=== PATIENT | female | born 1990 | race Caucasian/White ===

== ENCOUNTER 2016-06-19 17:23 | Emergency (ER) | payer MEDICAID ==
--- NOTE | 2016-06-19 17:26 | ED Physician Chart ---
Chief Complaint/HPI - Patient Information Date Seen:: 06/19/16 Time Seen:: 17:26 Chief Complaint:: abdominal pain History of Present Illness:: 26-year-old female complains of acute, constant, moderate to severe, aching and cramping, 8-9 out of 10, upper abdominal pain since yesterday morning. Has associated nausea and vomiting. Has a known history of gallstones. Allergies:: Allergies Allergy/AdvReac Type Severity Reaction Status Date / Time MDX No Known Allergies - Nka Allergy Verified 09/12/12 23:29 [No Known Allergies - Nka] Historian:: Patient Review:: Nurse's Note Reviewed Review of Systems - Review of Systems Other: Complete system review otherwise unremarkable except as noted in HPI. Past Medical History - Past Medical History Past Medical History: Other (cholelithiasis) Family History: None Social History: Non Smoker, No Alcohol, No Drug Use, Employed Surgical History: None Psychiatricy History: None Medication: None Family Medical History - Family Member Mother History Unknown: Yes Ethnicity: Living Status: Still Living Physical Exam - Physical Examination Other:: INITIAL VITAL SIGNS: Reviewed by me GENERAL: Alert and interactive. Very mild distress due to pain HEAD: Head is normocephalic and atraumatic EYES: EOMI. . No scleral icterus. No conjunctival injection ENT: Moist mucous membranes. NECK: Supple. No masses. Full range of motion RESPIRATORY: No tachypnea. Clear breath sounds bilaterally. No wheezing, rales, or rhonchi CV: Regular rate and rhythm. No murmurs, rubs, or gallops ABDOMEN: Soft, non-distended, guarding to deep palpation in the right upper quadrant. No rebound. No masses. EXTREMITIES: No deformity. No cyanosis. No edema. SKIN: Warm and dry. No obvious rashes. NEUROLOGIC: Alert and oriented. Face is symmetric. Speech is normal. Moves all extremities equally. Motor and sensory distally intact. Labs/Radiology/EKG Results - Lab Results Results: Lab Results 06/19/16 06/19/16 06/19/16 Range/Units 17:46 17:46 17:46 WBC 9.2 (4.8-10.8) Th/cmm RBC 4.83 (3.80-5.10) Mil/cmm Hgb 14.3 (11.7-15.5) gm/dL Hct 41.9 D (35.0-45.0) % MCV 86.7 (81-100) fl MCH 29.6 (27.0-31.0) pg MCHC Differential 34.2 (28.0-36.0) pg RDW 11.9 (11.5-20.0) % Plt Count 249 (150-400) Th/cmm MPV 9.0 fl Neutrophils % 76.8 (40.0-80.0) % Lymphocytes % 15.3 L (20.0-50.0) % Monocytes % 5.1 (2.0-10.0) % Eosinophils % 2.4 (0.0-5.0) % Basophils % 0.4 (0.0-2.0) % Sodium 136 (136-145) mEq/L Potassium 3.6 (3.5-5.1) mEq/L Chloride 105 (98-107) mEq/L Carbon Dioxide 23.8 (21.0-31.0) mEq/L Anion Gap 10.8 (7.0-16.0) BUN 8 (7-25) mg/dL Creatinine 0.4 L (0.6-1.2) mg/dL Est GFR ( Amer) > 60.0 ml/min Est GFR (Non-Af Amer) > 60.0 ml/min BUN/Creatinine Ratio 20.0 Glucose 102 (70-105) mg/dL Calcium 9.1 (8.6-10.3) mg/dL Total Bilirubin 1.3 H (0.3-1.0) mg/dL AST 174 H (13-39) U/L ALT 252 H (7-52) U/L Alkaline Phosphatase 114 H (34-104) U/L Total Protein 7.7 (6.0-8.3) gm/dL Albumin 4.3 (3.7-5.3) gm/dL Globulin 3.4 gm/dL Albumin/Globulin Ratio 1.3 (1.0-1.8) Amylase 45 (29-103) U/L Lipase 17 (11-82) U/L Serum , Qual NEGATIVE (NEGATIVE) - Radiology Results Results: CT abdomen and pelvis without contrast Cholelithiasis ED Septic Shock - . Is Septic Shock (SBP<90, OR Lactate>4 mmol\L) present?: No Reassessment (Disposition) - Reassessment Reassessment:: The patient has Symptomatically cholelithiasis. There is no indication of cholecystitis at this point. Discussed all the findings with her in detail. She received IV antiemetics and IV pain medications here in the ER with complete relief of symptoms. She will need to follow-up with her primary care physician first referral to surgery. This was explained in detail to the patient. Recommended follow-up with PCP in the next 1-2 days with ultimately referral to general surgery. We gave return to ER precautions. She says she understands and agrees with the plan. Reassessment Condition:: Improved - Diagnosis Diagnosis:: Symptomatically cholelithiasis - Aftercare/Follow up Instructions Aftercare/Follow-Up Instructions:: Counseled pt regarding lab results/diagnosis & need follow up, Refer to Discharge Instructions Medication Prescribed:: Onley Ibuprofen Zofran - Patient Disposition Discharge/Transfer:: Home Time:: 18:59 Condition at Disposition:: Improved ED Discharge Plan - Patient Disposition Admit/Discharge/Transfer: PT DISCHARGED HOME Condition at Disposition: Improved Instructions: Cholelithiasis, Ddcs-rs-Void
[2016-06-19] MEDS ORDERED: Sodium Chloride 0.9% 1,000 ML IV ONE (17:37)
[2016-06-19] MEDS ORDERED: Prochlorperazine 5 mg/mL 2mL Vial IVP STA (17:41)
[2016-06-19 17:58] LABS: % BASOPHILS 0.4 % (0.0-2.0); % EOSINOPHILS 2.4 % (0.0-5.0); % LYMPHOCYTES 15.3 % (20.0-50.0); % MONOCYTES 5.1 % (2.0-10.0); % NEUTROPHILS 76.8 % (40.0-80.0); HEMOGLOBIN 14.3 gm/dL (11.7-15.5); MEAN CELL VOLUME 86.7 fl (81-100); MEAN CORPUSCULAR HEMOGLOBIN 29.6 pg (27.0-31.0); MEAN CORPUSCULAR HGB CONC 34.2 pg (28.0-36.0); NEUTROPHILE ABSOLUTE 7.1 Th/cmm (1.8-8.0); PLATELET COUNT 249 Th/cmm (150-400); RED BLOOD COUNT 4.83 Mil/cmm (3.80-5.10); RED CELL DISTRIBUTION WIDTH 11.9 % (11.5-20.0); WHITE BLOOD COUNT 9.2 Th/cmm (4.8-10.8)
[2016-06-19 17:59] LABS: HEMATOCRIT 41.9 % (35.0-45.0)
[2016-06-19] MEDS ORDERED: Prochlorperazine 5 mg/mL 2mL Vial ONE (18:01)
[2016-06-19 18:07] LABS: ALB/GLOB RATIO 1.3 (1.0-1.8); ALKALINE PHOSPHATASE 114 U/L (34-104); AMYLASE SERUM 45 U/L (29-103); ANION GAP 10.8 (7.0-16.0); BILIRUBIN,TOTAL 1.3 mg/dL (0.3-1.0); BUN - UREA NITROGEN 8 mg/dL (7-25); CALCIUM SERUM 9.1 mg/dL (8.6-10.3); CARBON DIOXIDE 23.8 mEq/L (21.0-31.0); CHLORIDE 105 mEq/L (98-107); CREATININE - SERUM 0.4 mg/dL (0.6-1.2); GLUCOSE 102 mg/dL (70-105); LIPASE 17 U/L (11-82); POTASSIUM SERUM 3.6 mEq/L (3.5-5.1); SGOT 174 U/L (13-39); SGPT/ALT 252 U/L (7-52); SODIUM SERUM 136 mEq/L (136-145)
--- NOTE | 2016-06-20 11:55 | Diagnostic Imaging Report ---
CT scan abdomen and pelvis without intravenous contrast HISTORY: Pain Total DLP equals 658 CTDI equals 12.6 Axial sections were obtained from the xiphoid process down to the pubic symphysis. The liver exhibits a homogeneous parenchyma. No focal lesions. Multiple gallstones are seen. The spleen appears normal. No focal abnormality seen in the region of the pancreas. No focal renal lesions. The exam of the pelvis demonstrates preservation of normal fat planes. No abnormal soft tissue masses or abnormal fluid collections. No abnormality seen in the region of the appendix. IMPRESSION: 1. Cholelithiasis 2. No other acute abnormalities
== END 2016-06-19 19:10 | disposition home or self-care (01) ==
LOC: ER 17:23
DX: K80.20 Calculus of gallbladder without cholecystitis without obstruction (principal)
CPT/HCPCS: 99285; 74176; 96374; 96375; 36415; 85025; 82150; 81025; 83690; 80053; J1885; J2405; J0780; J7030

== ENCOUNTER 2017-08-31 19:25 | Inpatient (IN) | payer MEDICAID ==
--- NOTE | 2017-08-31 20:57 | ED Physician Chart ---
ED Chief Complaint/HPI - Patient Information Date Seen:: 08/31/17 Time Seen:: 20:52 Chief Complaint:: Abdominal pain History of Present Illness:: 27 yo female had abdominal pain with nausea and vomiting for 4 days. She had abdominal bloating and decreased appetite. Patient denied diarrhea or dysuria. Her urine had dark tea color. Her skin and bilateral conjunctiva were noticed to be yellow for 1 day. Allergies:: Allergies Allergy/AdvReac Type Severity Reaction Status Date / Time No Known Allergies Allergy Verified 08/31/17 20:05 Vitals:: Vital Signs - 8 hr 08/31/17 19:40 Temp 98.1 F HR 80 RR 18 BP 107/67 O2 Sat % 98 ED Review of Systems - Review of Systems General/Constitutional: No fever Skin: Other (yellow skin) Head: No headache Eyes: No pain ENT: No nasal drainage Neck: No neck pain Cardio Vascular: No chest pain Pulmonary: No SOB GI: Nausea, Vomiting, No diarrhea G/U: Other (tea color urine) Musculoskeletal: No bone or joint pain Psychiatric: No prior psych history ED Past Medical History - Past Medical History Past Medical History: No significant medical hx, Other (irregular menstural peroids, LMP 9 months ago) Social History: Non Smoker, No Alcohol, No Drug Use Surgical History: None Family Medical History - Family Member Mother History Unknown: Yes Ethnicity: Living Status: Still Living ED Physical Exam - Physical Examination General/Constitutional: Awake, Alert Head: Atraumatic Other Eyes comments:: icteric conjunctiva Other Skin comments:: jaundice ENMT: Nasal exam nl Neck: No nuchal rigidity Respiratory: Clear to Auscultation Cardio Vascular: RRR, No murmur, gallop, rubs, NL S1 S2 Other GI comments:: Diffused abdominal tenderness and RUQ tenderness, hypoactive bowel sound Extremities: normal strength in all extremities Neuro/Psych: No focal deficits ED Assessment - Assessment General Assessment: Cholecystitis Choledocholithiasis Jaundice UTI Dehydration Assessment/Comments:: CBC, CMP, lipase, amylase, UA Abdominal u/s NS 1L IV bolus Pantoprazole 40mg IV Rocephin IV Flagyl IV Admit to med surg ED Septic Shock - . Is Septic Shock (SBP<90, OR Lactate>4 mmol\L) present?: No - <6hrs of presentation: Vital Signs: Vital Signs - 8 hr 08/31/17 19:40 Temp 98.1 F HR 80 RR 18 BP 107/67 O2 Sat % 98 ED Reassessment (Disposition) - Reassessment Reassessment Condition:: Improved - Patient Disposition Discharge/Transfer:: Acute Care w/in this hosp Admitting Medical Physician:: Alek Moss
[2017-08-31 21:21] LABS: % BASOPHILS 1.4 % (0.0-2.0); % EOSINOPHILS 1.5 % (0.0-5.0); % LYMPHOCYTES 16.9 % (20.0-50.0); % MONOCYTES 5.7 % (2.0-10.0); % NEUTROPHILS 74.5 % (40.0-80.0); BASOPHILE ABSOLUTE 0.1 Th/cumm (0-0.2); EOSINOPHILE ABSOLUTE 0.1 Th/cmm (0.1-0.4); HEMATOCRIT 39.8 % (41.0-60); HEMOGLOBIN 13.8 gm/dL (12-16); LYMPHOCYTE ABSOLUTE 1.5 Th/cmm (1.5-3.0); MEAN CELL VOLUME 87.2 fl (81-100); MEAN CORPUSCULAR HEMOGLOBIN 30.3 pg (27.0-31.0); MEAN CORPUSCULAR HGB CONC 34.7 pg (28.0-36.0); MEAN PLATELET VOLUME 8.5 fl; MONOCYTE ABSOLUTE 0.5 Th/cmm (0.3-1.0); NEUTROPHILE ABSOLUTE 6.8 Th/cmm (1.8-8.0); PLATELET COUNT 278 Th/cmm (150-400); RED BLOOD COUNT 4.57 Mil/cmm (3.80-5.10); RED CELL DISTRIBUTION WIDTH 11.9 % (11.5-20.0)
[2017-08-31 21:40] LABS: ALB/GLOB RATIO 1.2 (1.0-1.8); ALBUMIN 4.2 gm/dL (3.7-5.3); ALKALINE PHOSPHATASE 179 U/L (34-104); AMYLASE SERUM 44 U/L (29-103); BILIRUBIN,TOTAL 4.6 mg/dL (0.3-1.0); BUN - UREA NITROGEN 9 mg/dL (7-25); CALCIUM SERUM 9.8 mg/dL (8.6-10.3); CARBON DIOXIDE 24.5 mEq/L (21.0-31.0); CHLORIDE 103 mEq/L (98-107); CREATININE - SERUM 0.4 mg/dL (0.6-1.2); GFR AFRICAN-AMERICAN > 60.0 ml/min (>90); GFR NON AFRICAN-AMERICAN > 60.0 ml/min; GLUCOSE 105 mg/dL (70-105); LIPASE 37 U/L (11-82); POTASSIUM SERUM 3.5 mEq/L (3.5-5.1); SGOT 122 U/L (13-39); SGPT/ALT 249 U/L (7-52); SODIUM SERUM 132 mEq/L (136-145); TOTAL PROTEIN,SERUM 7.6 gm/dL (6.0-8.3)
[2017-08-31 21:55] LABS: URINE MICROSCOPIC INDICATED? YES; URINE SOURCE RANDOM
[2017-08-31 22:00] LABS: URINE BILIRUBIN LARGE (NEGATIVE); URINE BLOOD NEGATIVE (NEGATIVE); URINE GLUCOSE (UA) NEGATIVE (NEGATIVE); URINE KETONE TRACE mg/dL (NEGATIVE); URINE LEUKOCYTE ESTERASE TRACE (NEGATIVE); URINE NITRATE NEGATIVE (NEGATIVE); URINE PH 5.5 (4.6 - 8.0); URINE PROTEIN TRACE mg/dL (NEGATIVE)
[2017-08-31] MEDS ORDERED: Sodium Chloride 0.9% 1,000 ML IV ONE (22:02)
[2017-08-31 22:04] LABS: URINE COLOR DARK YELLOW
[2017-08-31 22:05] LABS: URINE CLARITY SLIGHT CLOUDY (CLEAR)
[2017-08-31 22:16] LABS: URINE ICTOTEST POSITIVE (NEGATIVE); URINE RBC 0-2 /hpf (0-5)
[2017-08-31 22:17] LABS: URINE BACTERIA NONE SEEN /hpf (NONE SEEN); URINE EPITHELIAL CELLS MODERATE /lpf (FEW)
[2017-08-31] MEDS ORDERED: cefTRIAXone 1 GM in Sodium Chloride 0.9% 50 ML IV ONE (23:21)
[2017-08-31] MEDS ORDERED: metroNIDAZOLE 500mg/NS 100mL 500 MG/100 ML BAG IV ONE ×2 (23:21→23:26)
[2017-08-31] MEDS ORDERED: Morphine Sulfate 2 mg/mL 1mL Syr IVP PRN (23:59)
[2017-09-01] MEDS: D5-0.45NS 1,000 ML IV SCH ×3 (01:05→23:33)
[2017-09-01 01:27] VITALS: BP 118/70
[2017-09-01] MEDS ORDERED: Piperacillin Sodium/Tazobact 3.375 gm Vial IV ONE (01:52)
[2017-09-01 06:39] LABS: % BASOPHILS 0.4 % (0.0-2.0); % EOSINOPHILS 2.8 % (0.0-5.0); % NEUTROPHILS 59.8 % (40.0-80.0); EOSINOPHILE ABSOLUTE 0.2 Th/cmm (0.1-0.4); HEMATOCRIT 37.9 % (41.0-60); HEMOGLOBIN 12.9 gm/dL (12-16); LYMPHOCYTE ABSOLUTE 1.8 Th/cmm (1.5-3.0); MEAN CELL VOLUME 87.1 fl (81-100); MEAN CORPUSCULAR HEMOGLOBIN 29.7 pg (27.0-31.0); MEAN CORPUSCULAR HGB CONC 34.1 pg (28.0-36.0); MONOCYTE ABSOLUTE 0.5 Th/cmm (0.3-1.0); NEUTROPHILE ABSOLUTE 3.8 Th/cmm (1.8-8.0); PLATELET COUNT 251 Th/cmm (150-400); RED BLOOD COUNT 4.36 Mil/cmm (3.80-5.10); RED CELL DISTRIBUTION WIDTH 12.1 % (11.5-20.0)
[2017-09-01 06:43] LABS: WHITE BLOOD COUNT 6.3 Th/cmm (4.8-10.8)
[2017-09-01 06:55] LABS: ANION GAP 8.6 (7.0-16.0); BUN - UREA NITROGEN 7 mg/dL (7-25); CARBON DIOXIDE 26.1 mEq/L (21.0-31.0); CHLORIDE 109 mEq/L (98-107); CHOLESTEROL 162 mg/dL (<200); CREATININE - SERUM 0.5 mg/dL (0.6-1.2); GFR AFRICAN-AMERICAN > 60.0 ml/min (>90); GFR NON AFRICAN-AMERICAN > 60.0 ml/min; GLUCOSE 129 mg/dL (70-105); HDL -HIGH DENSITY LIPOPROTEIN 27 mg/dL (23-92); LIPASE 13 U/L (11-82); POTASSIUM SERUM 3.7 mEq/L (3.5-5.1); SODIUM SERUM 140 mEq/L (136-145); TRIGLYCERIDES 153 mg/dL (<150)
--- NOTE | 2017-09-01 08:39 | Diagnostic Imaging Report ---
Abdominal ultrasound HISTORY: Pain The liver is somewhat enlarged. Evaluation limited due to patient's size and body habitus. No definite focal lesions. The exam of the gallbladder demonstrates intraluminal echogenic densities with acoustic shadowing. Findings consistent with cholelithiasis. There is incomplete delineation of the common bile duct. However there does appear to be a degree of dilatation (1.1 cm). Pancreas cannot be well seen due to bowel gas. The kidneys appear normal bilaterally. No definite focal lesions or hydronephrosis. No other retroperitoneal or intra-abdominal abnormalities. IMPRESSION: 1. Limited exam due to patient's size and body habitus 2. Findings consistent with cholelithiasis 3. Suggestion of dilatation of the common bile duct (1.[address] cm). [address] CT scan may provide additional assessment and evaluation. 4. Hepatomegaly along with findings that may be related to fatty infiltration. The finding should be correlated with laboratory data.
--- NOTE | 2017-09-01 08:47 | Consultation ---
DATE OF CONSULTATION: 09/01/2017 INPATIENT GASTROINTESTINAL CONSULTATION CONSULTING PHYSICIAN: Dr. Moss. REASON FOR CONSULTATION: Elevated liver function tests and abdominal pain. HISTORY OF PRESENT ILLNESS: The patient is a 27-year-old female with no past medical history who comes to the hospital with 1 week of epigastric abdominal pain, nausea and vomiting and jaundice. She notes her pain began about a week ago, mostly concentrated in the epigastric region. Additionally, the patient also reported vomiting several times a day over this period as well, although the vomit has been nonbloody in nature. She does not report any melena or hematochezia during this time. About 4 days ago, the patient notes that her eyes appeared more yellow in nature as well as her urine more dark than usual. As her symptoms did not relent, she did seek emergency treatment yesterday and in the Emergency Room, she was found to have a total bilirubin level of 4 as well as a preliminary ultrasound result showing possible choledocholithiasis. Thus, the patient has been admitted for further management and placed on antibiotics. PAST MEDICAL HISTORY: The patient denies any previous medical issues. PAST SURGICAL HISTORY: The patient denies any surgeries in the past. FAMILY HISTORY: Noncontributory. SOCIAL HISTORY: The patient does not drink or use any other illicit substances. ALLERGIES: No known drug allergies. REVIEW OF SYSTEMS: A 12-point review of systems was performed with the patient and is negative other than the pertinent positives are mentioned in the history of present illness. CURRENT MEDICATIONS: Morphine as needed, Zofran as needed, Zosyn. PHYSICAL EXAMINATION: VITAL SIGNS: Blood pressure is 102/56, temperature 96.8, pulse 80 beats per minute, respiratory rate of 18, oxygenation 95%. GENERAL: The patient is sitting upright in bed. She is alert and oriented x 3 in a mild amount of anxiety. HEAD, EARS, EYES, NOSE AND THROAT: Normocephalic, atraumatic appearing head. There is scleral icterus. Pupils are equal and reactive to light. Extraocular muscles are intact. Moist mucous membranes with sublingual icterus noted. NECK: Supple, no lymphadenopathy, no thyromegaly. CHEST: Clear to auscultation bilaterally. CARDIOVASCULAR: S1, S2 are present. Regular rate and rhythm. ABDOMEN: Tender to palpation in the epigastric region. No guarding or rebound. Mild obesity. No distention. EXTREMITIES: No pitting edema. Pulses are present. SKIN: There is some mild jaundice, no cyanosis or other rashes. LABORATORY DATA: White blood cell count is 6.3, hemoglobin is 12.9, platelet count is 251, BUN 7, creatinine 0.5, sodium 140, total bilirubin 4.6, AST 122, ALT is 249, alkaline phosphatase 179. There has been an ultrasound performed, although there is no official report yet. IMPRESSION: This is a 27-year-old female with no past medical history who comes to the hospital with 1 week of abdominal pain, nausea, vomiting and jaundice. PLAN: 1. Elevated liver function test. 2. Abdominal pain. 3. Nausea and vomiting. 4. Jaundice. DISCUSSION: Given that there is a preliminary ultrasound read showing possible choledocholithiasis, the patient may have a gallstone that has been lodged in the common bile duct causing her symptoms. This will need to be confirmed with an MRCP prior to planning for ERCP to remove the stone. The patient will also benefit from a surgical consultation in this regard in order to have her gallbladder removed after ERCP if necessary. RECOMMENDATIONS: 1. MRCP and if there is a stone in the common bile duct, we will be planning for ERCP. 2. Can continue antibiotics at this point, although there is no definite evidence of infection on her labs and she does not have a fever. 3. Surgical consultation for cholecystectomy. 4. Can place the patient on clears as there is no procedure planned for today. 5. We will follow the liver function test and the MRCP read. Thank you for allowing me to participate in this patient's care. Please call with any further questions. JOB# [id number]
[2017-09-01] MEDS ORDERED: Pneumococcal Vaccine 0.5 mL Vial IM ONE (11:00)
[2017-09-01] MEDS ORDERED: Influenza Vaccine 0.5 mL Syr IM ONE (11:00)
--- NOTE | 2017-09-01 11:02 | History & Physical ---
ADMIT DATE: 09/01/2017 CHIEF COMPLAINT: Abdominal pain. HISTORY OF PRESENT ILLNESS: This is a 27-year-old female who presented to the Emergency Room due to abdominal pain with vomiting for 4 days and decreased appetite. The patient also noted that she is having yellowish conjunctiva for 2 days. REVIEW OF SYSTEMS: GENERAL: This is a 27-year-old female that appears as stated. HEENT: Denies any headache. Denies dizziness. EYES: Yellowish sclera. Denies blurring of vision. Denies any eye pain. NECK: Denies neck pain, denies nuchal rigidity. CHEST: Denies palpitation. Denies chest pain. PULMONARY: Denies coughing. Denies shortness of breath. GASTROINTESTINAL: Positive abdominal pain, positive nausea. Denies vomiting, denies diarrhea, denies constipation. MUSCULOSKELETAL: Denies joint pain. Denies muscle pain. PAST MEDICAL HISTORY: Unremarkable. SOCIAL HISTORY: The patient lives with family. Denies any illicit drug use. Denies nicotine use. Denies alcohol use. FAMILY HISTORY: Unremarkable. PAST SURGICAL HISTORY: Unremarkable. PHYSICAL EXAMINATION: VITAL SIGNS: Temperature 96.8, heart rate of 80, blood pressure 102/56, respiration of 18, 99% on room air. GENERAL: This is a 27-year-old female, in no acute distress. HEENT: Head is atraumatic, normocephalic. Eyes: Bilateral conjunctivae are clear. Bilateral pupils are equally round and reactive. NECK: Supple. No JVD. CARDIOVASCULAR: S1 and S2, without murmur. PULMONARY: Clear to auscultation. GASTROINTESTINAL: Soft and nontender. Positive guarding. Positive bowel sounds. MUSCULOSKELETAL: No clubbing. No cyanosis noted. ASSESSMENT: 1. Cholecystitis. 2. Choledocholithiasis. 3. Jaundice. 4. Urinary tract infection. PLAN: We will keep the patient inpatient will follow up with a GI doctor for possible MRCP and ERCP. We will continue current antibiotics. We will put the patient on n.p.o. status unless per clearance from GI. We will also put patient on pain management as needed. Treatment plans were discussed with the patient's nurse. Treatment plans were discussed with Dr. Moss. JOB# [id number]
[2017-09-02 08:01] LABS: ALB/GLOB RATIO 1.4 (1.0-1.8); ALBUMIN 3.7 gm/dL (3.7-5.3); BILIRUBIN,DIRECT 1.48 mg/dL (0.0-0.2); TOTAL PROTEIN,SERUM 6.4 gm/dL (6.0-8.3)
--- NOTE | 2017-09-02 09:13 | General Progress Note ---
Subjective - Review of Systems Events since last encounter: patient admitted for abd pain ,n/v cholelitiasis today doing better Objective - Results Result Diagrams: 09/01/17 06:10 09/01/17 06:10 Recent Labs: Laboratory Last Values WBC 6.3 Th/cmm (4.8-10.8) D 09/01/17 06:10 RBC 4.36 Mil/cmm (3.80-5.10) 09/01/17 06:10 Hgb 12.9 gm/dL (12-16) 09/01/17 06:10 Hct 37.9 % (41.0-60) L 09/01/17 06:10 MCV 87.1 fl (81-100) 09/01/17 06:10 MCH 29.7 pg (27.0-31.0) 09/01/17 06:10 MCHC Differential 34.1 pg (28.0-36.0) 09/01/17 06:10 RDW 12.1 % (11.5-20.0) 09/01/17 06:10 Plt Count 251 Th/cmm (150-400) 09/01/17 06:10 MPV 9.0 fl 09/01/17 06:10 Neutrophils % 59.8 % (40.0-80.0) 09/01/17 06:10 Lymphocytes % 29.0 % (20.0-50.0) 09/01/17 06:10 Monocytes % 8.0 % (2.0-10.0) 09/01/17 06:10 Eosinophils % 2.8 % (0.0-5.0) 09/01/17 06:10 Basophils % 0.4 % (0.0-2.0) 09/01/17 06:10 Sodium 140 mEq/L (136-145) 09/01/17 06:10 Potassium 3.7 mEq/L (3.5-5.1) 09/01/17 06:10 Chloride 109 mEq/L (98-107) H 09/01/17 06:10 Carbon Dioxide 26.1 mEq/L (21.0-31.0) 09/01/17 06:10 Anion Gap 8.6 (7.0-16.0) 09/01/17 06:10 BUN 7 mg/dL (7-25) 09/01/17 06:10 Creatinine 0.5 mg/dL (0.6-1.2) L 09/01/17 06:10 Est GFR ( Amer) > 60.0 ml/min (>90) 09/01/17 06:10 Est GFR (Non-Af Amer) > 60.0 ml/min 09/01/17 06:10 BUN/Creatinine Ratio 14.0 09/01/17 06:10 Glucose 129 mg/dL (70-105) H 09/01/17 06:10 POC Glucose 92 MG/DL (70 - 105) 09/01/17 00:34 Calcium 9.0 mg/dL (8.6-10.3) 09/01/17 06:10 Total Bilirubin 3.0 mg/dL (0.3-1.0) H 09/02/17 05:42 Direct Bilirubin 1.48 mg/dL (0.0-0.2) H 09/02/17 05:42 AST 84 U/L (13-39) H 09/02/17 05:42 ALT 180 U/L (7-52) H 09/02/17 05:42 Alkaline Phosphatase 151 U/L (34-104) H 09/02/17 05:42 Total Protein 6.4 gm/dL (6.0-8.3) 09/02/17 05:42 Albumin 3.7 gm/dL (3.7-5.3) 09/02/17 05:42 Globulin 2.7 gm/dL 09/02/17 05:42 Albumin/Globulin Ratio 1.4 (1.0-1.8) 09/02/17 05:42 Triglycerides 153 mg/dL (<150) H 09/01/17 06:10 Cholesterol 162 mg/dL (<200) 09/01/17 06:10 LDL Cholesterol Direct 111 mg/dL (75-193) 09/01/17 06:10 HDL Cholesterol 27 mg/dL (23-92) 09/01/17 06:10 Amylase 44 U/L (29-103) 08/31/17 21:16 Lipase 13 U/L (11-82) 09/01/17 06:10 TSH 0.93 uIU/ml (0.34-5.60) 09/01/17 06:10 Urine Source RANDOM 08/31/17 20:05 Urine Color DARK YELLOW 03/16/18 20:05 Urine Clarity SLIGHT CLOUDY (CLEAR) H 08/31/17 20:05 Urine pH 5.5 (4.6 - 8.0) 08/31/17 20:05 Ur Specific [place] >= 1.030 (1.005-1.030) 08/31/17 20:05 Urine Protein TRACE mg/dL (NEGATIVE) 08/31/17 20:05 Urine Glucose (UA) NEGATIVE mg/dL (NEGATIVE) 08/31/17 20:05 Urine Ketones TRACE mg/dL (NEGATIVE) 08/31/17 20:05 Urine Blood NEGATIVE (NEGATIVE) 08/31/17 20:05 Urine Nitrate NEGATIVE (NEGATIVE) 08/31/17 20:05 Urine Bilirubin LARGE (NEGATIVE) H 08/31/17 20:05 Urine Ictotest POSITIVE (NEGATIVE) 08/31/17 20:05 Urine Urobilinogen 2.0 E.U./dL (0.2 - 1.0) 08/31/17 20:05 Ur Leukocyte Esterase TRACE (NEGATIVE) H 08/31/17 20:05 Urine RBC 0-2 /hpf (0-5) 08/31/17 20:05 Urine WBC 2-5 /hpf (0-5) 08/31/17 20:05 Ur Epithelial Cells MODERATE /lpf (FEW) 08/31/17 20:05 Urine Bacteria NONE SEEN /hpf (NONE SEEN) 08/31/17 20:05 Urine Test NEGATIVE 08/31/17 20:05 - Physical Exam Vitals and I&O: Vital Signs Temp 96.3 F 09/02/17 04:00 Pulse 71 09/02/17 04:00 Resp 19 09/02/17 04:00 BP 96/55 09/02/17 04:00 Pulse Ox 97 09/02/17 04:00 Intake & Output 09/01/17 09/02/17 09/02/17 18:59 06:59 18:59 Intake Total 3215.267 6497 Balance 0357.150 8355 Weight (lbs) 88.133 kg 87.997 kg Intake: Intake, IV Amount 793.602 7262 D5-0.45NS 1,000 ml @ 100 956.126 6508 mls/hr IV .Q10H [facility] Rx#: [id number] Piperacillin Sodium/ 100 Tazobact 3.375 gm In Sodium Chloride 0.9% 50 ml @ 100 mls/hr IV Q8H [facility] Rx#:[id number] Oral 600 25 Other: # Voids 3 4 # Bowel Movements 1 0 Active Medications: Current Medications Dextrose/Sodium Chloride (D5-0.45ns) 1,000 mls @ 100 mls/hr IV .Q10H [facility] Stop: 10/30/17 23:58 Last Admin: 09/01/17 23:33 Dose: 100 mls/hr Piperacillin Sod/Tazobactam (Sod 3.375 gm/ Sodium Chloride) 50 mls @ 100 mls/ hr IV Q8H [facility] Stop: 10/31/17 09:59 Last Admin: 09/02/17 02:45 Dose: 100 mls/hr Morphine Sulfate (Morphine) 1 mg IVP Q4H PRN PRN Reason: Pain (Severe) Stop: 10/30/17 23:58 Ondansetron HCl (Zofran) 4 mg IV Q6H PRN PRN Reason: Nausea / Vomiting Stop: 10/30/17 23:58 Last Admin: 09/01/17 14:18 Dose: 4 mg - Procedures Procedures: Procedures Procedure Code Date ASPIRAT CURET-POST DELIV 69.52 08/23/11 MONITORING NOS 75.34 07/06/13 NON-STRESS TEST 55513 07/04/13 TREATMENT OF MISCARRIAGE 88400 08/23/11
[2017-09-02] MEDS: D5-0.45NS 1,000 ML IV SCH (10:37)
--- NOTE | 2017-09-02 11:57 | GI Progress Note ---
Subjective - Review of Systems Service Date: 09/02/17 Subjective: No further abd pain, LFTs trending down Objective - Results Result Diagrams: 09/01/17 06:10 09/01/17 06:10 Recent Labs: Laboratory Last Values WBC 6.3 Th/cmm (4.8-10.8) D 09/01/17 06:10 RBC 4.36 Mil/cmm (3.80-5.10) 09/01/17 06:10 Hgb 12.9 gm/dL (12-16) 09/01/17 06:10 Hct 37.9 % (41.0-60) L 09/01/17 06:10 MCV 87.1 fl (81-100) 09/01/17 06:10 MCH 29.7 pg (27.0-31.0) 09/01/17 06:10 MCHC Differential 34.1 pg (28.0-36.0) 09/01/17 06:10 RDW 12.1 % (11.5-20.0) 09/01/17 06:10 Plt Count 251 Th/cmm (150-400) 09/01/17 06:10 MPV 9.0 fl 09/01/17 06:10 Neutrophils % 59.8 % (40.0-80.0) 09/01/17 06:10 Lymphocytes % 29.0 % (20.0-50.0) 09/01/17 06:10 Monocytes % 8.0 % (2.0-10.0) 09/01/17 06:10 Eosinophils % 2.8 % (0.0-5.0) 09/01/17 06:10 Basophils % 0.4 % (0.0-2.0) 09/01/17 06:10 Sodium 140 mEq/L (136-145) 09/01/17 06:10 Potassium 3.7 mEq/L (3.5-5.1) 09/01/17 06:10 Chloride 109 mEq/L (98-107) H 09/01/17 06:10 Carbon Dioxide 26.1 mEq/L (21.0-31.0) 09/01/17 06:10 Anion Gap 8.6 (7.0-16.0) 09/01/17 06:10 BUN 7 mg/dL (7-25) 09/01/17 06:10 Creatinine 0.5 mg/dL (0.6-1.2) L 09/01/17 06:10 Est GFR ( Amer) > 60.0 ml/min (>90) 09/01/17 06:10 Est GFR (Non-Af Amer) > 60.0 ml/min 09/01/17 06:10 BUN/Creatinine Ratio 14.0 09/01/17 06:10 Glucose 129 mg/dL (70-105) H 09/01/17 06:10 POC Glucose 92 MG/DL (70 - 105) 09/01/17 00:34 Calcium 9.0 mg/dL (8.6-10.3) 09/01/17 06:10 Total Bilirubin 3.0 mg/dL (0.3-1.0) H 09/02/17 05:42 Direct Bilirubin 1.48 mg/dL (0.0-0.2) H 09/02/17 05:42 AST 84 U/L (13-39) H 09/02/17 05:42 ALT 180 U/L (7-52) H 09/02/17 05:42 Alkaline Phosphatase 151 U/L (34-104) H 09/02/17 05:42 Total Protein 6.4 gm/dL (6.0-8.3) 09/02/17 05:42 Albumin 3.7 gm/dL (3.7-5.3) 09/02/17 05:42 Globulin 2.7 gm/dL 09/02/17 05:42 Albumin/Globulin Ratio 1.4 (1.0-1.8) 09/02/17 05:42 Triglycerides 153 mg/dL (<150) H 09/01/17 06:10 Cholesterol 162 mg/dL (<200) 09/01/17 06:10 LDL Cholesterol Direct 111 mg/dL (75-193) 09/01/17 06:10 HDL Cholesterol 27 mg/dL (23-92) 09/01/17 06:10 Amylase 44 U/L (29-103) 08/31/17 21:16 Lipase 13 U/L (11-82) 09/01/17 06:10 TSH 0.93 uIU/ml (0.34-5.60) 09/01/17 06:10 Urine Source RANDOM 08/31/17 20:05 Urine Color DARK YELLOW 08/31/17 20:05 Urine Clarity SLIGHT CLOUDY (CLEAR) H 08/31/17 20:05 Urine pH 5.5 (4.6 - 8.0) 08/31/17 20:05 Ur Specific [place] >= 1.030 (1.005-1.030) 08/31/17 20:05 Urine Protein TRACE mg/dL (NEGATIVE) 08/31/17 20:05 Urine Glucose (UA) NEGATIVE mg/dL (NEGATIVE) 08/31/17 20:05 Urine Ketones TRACE mg/dL (NEGATIVE) 08/31/17 20:05 Urine Blood NEGATIVE (NEGATIVE) 08/31/17 20:05 Urine Nitrate NEGATIVE (NEGATIVE) 08/31/17 20:05 Urine Bilirubin LARGE (NEGATIVE) H 08/31/17 20:05 Urine Ictotest POSITIVE (NEGATIVE) 08/31/17 20:05 Urine Urobilinogen 2.0 E.U./dL (0.2 - 1.0) 08/31/17 20:05 Ur Leukocyte Esterase TRACE (NEGATIVE) H 08/31/17 20:05 Urine RBC 0-2 /hpf (0-5) 08/31/17 20:05 Urine WBC 2-5 /hpf (0-5) 08/31/17 20:05 Ur Epithelial Cells MODERATE /lpf (FEW) 08/31/17 20:05 Urine Bacteria NONE SEEN /hpf (NONE SEEN) 08/31/17 20:05 Urine Test NEGATIVE 08/31/17 20:05 - Physical Exam Vitals and I&O: Vital Signs Temp 97.0 F 09/02/17 08:00 Pulse 67 09/02/17 08:00 Resp 18 09/02/17 08:00 BP 108/67 09/02/17 08:00 Pulse Ox 99 09/02/17 08:00 Intake & Output 09/01/17 09/02/17 09/02/17 18:59 06:59 18:59 Intake Total 0766.792 0528 1000 Balance 0930.234 0839 1000 Weight (lbs) 88.133 kg 87.997 kg Intake: Intake, IV Amount 968.266 2730 1000 D5-0.45NS 1,000 ml @ 100 339.517 9200 1000 mls/hr IV .Q10H [facility] Rx#: [id number] Piperacillin Sodium/ 100 50 Tazobact 3.375 gm In Sodium Chloride 0.9% 50 ml @ 100 mls/hr IV Q8H [facility] Rx#:[id number] Oral 600 25 Other: # Voids 3 4 # Bowel Movements 1 0 Active Medications: Current Medications Dextrose/Sodium Chloride (D5-0.45ns) 1,000 mls @ 100 mls/hr IV .Q10H [facility] Stop: 10/30/17 23:58 Last Admin: 09/02/17 10:37 Dose: 100 mls/hr Piperacillin Sod/Tazobactam (Sod 3.375 gm/ Sodium Chloride) 50 mls @ 100 mls/ hr IV Q8H [facility] Stop: 10/31/17 09:59 Last Admin: 09/02/17 09:24 Dose: 100 mls/hr Morphine Sulfate (Morphine) 1 mg IVP Q4H PRN PRN Reason: Pain (Severe) Stop: 10/30/17 23:58 Ondansetron HCl (Zofran) 4 mg IV Q6H PRN PRN Reason: Nausea / Vomiting Stop: 10/30/17 23:58 Last Admin: 09/01/17 14:18 Dose: 4 mg General: Alert, Oriented x3 Neck: Supple Cardiovascular: Regular rate Abdomen: Bowel sounds, Soft, Obese, no Tender, no Hepatomegaly, no Distended, no Rebound, no Mass, no Guarding Psych/Mental Status: Mental status NL - Procedures Procedures: Procedures Procedure Code Date ASPIRAT CURET-POST DELIV 69.52 08/23/11 MONITORING NOS 75.34 07/06/13 NON-STRESS TEST 97063 07/04/13 TREATMENT OF MISCARRIAGE 82801 08/23/11 Assessment/Plan - Assessment Assessment: # Elevated LFTs # Abd pain # Cholelithiasis Suspect choledocholithiasis, although MRCP needed to confirm. Plan: - MRCP to eval for choledocho. ERCP if confirmed. If she passed stone, she will need cholecystectomy - agree with abx - full liquid diet for now - trend LFTs
--- NOTE | 2017-09-02 15:53 | Consultation ---
Consult Note - Consult Note Service Date: 09/02/17 Referring Physician: Alek Moss Consult Note: PHYSICIAN Consultation Note: Date of Admission: 08/31/17 Purpose of Consultation: abdominal pain. Chief Complaint: Patient HAYLEE ANDRE was admitted to location Medical/ Surgical Unit I with ABDOMINAL PAIN,CHOLECYSTITIS. History of Present Illness: 27-year-old female with a past medical history of gallstone presented to ER with nausea vomiting and associated abdominal pain. On initial evaluation, patient's temperature was 98.3F and WBC count was 9000. Ultrasound of the abdomen suggested the choledocholithiasis. LFTs are elevated as well as bilirubin. Past Medical History: Gallstones. Allergies Allergy/AdvReac Type Severity Reaction Status Date / Time No Known Allergies Allergy Verified 08/31/17 20:05 Vital Signs Temp 97.0 F 09/02/17 08:00 Pulse 67 09/02/17 08:00 Resp 18 09/02/17 08:00 BP 108/67 09/02/17 08:00 Pulse Ox 99 09/02/17 08:00 Intake & Output 09/01/17 09/02/17 09/02/17 18:59 06:59 18:59 Intake Total 0681.407 3797 1000 Balance 9871.149 1530 1000 Weight (lbs) 88.133 kg 87.997 kg Intake: Intake, IV Amount 823.836 6028 1000 D5-0.45NS 1,000 ml @ 100 784.067 3653 1000 mls/hr IV .Q10H [facility] Rx#: [id number] Piperacillin Sodium/ 100 50 Tazobact 3.375 gm In Sodium Chloride 0.9% 50 ml @ 100 mls/hr IV Q8H [facility] Rx#:[id number] Oral 600 25 Other: # Voids 3 4 # Bowel Movements 1 0 Laboratory Results - last 24 hr 09/02/17 05:42 Total Bilirubin 3.0 H Direct Bilirubin 1.48 H AST 84 H ALT 180 H Alkaline Phosphatase 151 H Total Protein 6.4 Albumin 3.7 Globulin 2.7 Albumin/Globulin Ratio 1.4 Home Medication Medication Instructions Recorded Type NK [No Home Meds] 08/31/17 History Current Medications Generic Name Dose Route Start Last Admin Trade Name Freq PRN Reason Stop Dose Admin Guaifenesin 200 mg 09/02/17 12:56 Robitussin PO 11/01/17 12:55 Q4HR PRN Cough or Congestion Dextrose/Sodium Chloride 1,000 mls @ 100 mls/hr 08/31/17 23:59 09/02/17 10:37 D5-0.45ns IV 10/30/17 23:58 100 mls/hr .Q10H [facility] Administration Piperacillin Sod/Tazobactam 50 mls @ 100 mls/hr 09/01/17 10:00 09/02/17 09:24 Sod 3.375 gm/ Sodium Chloride IV 10/31/17 09:59 100 mls/hr Q8H [facility] Administration Morphine Sulfate 1 mg 09/01/17 11:38 Morphine IVP 10/30/17 23:58 Q4H PRN Pain (Severe) Ondansetron HCl 4 mg 08/31/17 23:59 09/01/17 14:18 Zofran IV 10/30/17 23:58 4 mg Q6H PRN Administration Nausea / Vomiting Review of Systems: A 12 point ROS was reviewed with the pertinent positive and negatives noted in the HPI. Social History Smoking Status Unknown if ever smoked Family Medical History Family Medical History Start: 08/31/17 23: 58 Freq: ONCE Status: Active Document 09/01/17 00:30 DAMASO (Rec: 09/01/17 01:25 DAMASO RONNY- [id number]) Family Medical History Father Hx Family Diabetes Yes Mother History Unknown Yes Physical Exam: General: Headache Comfortable, mildly obese. Not in acute distress. EOMI. HEENT: Head: NC NT.Oral cavity: Moist, pink tongue. Eyes: No Pallor. icterus present.. PERRLA. Neck: Supple, no JVD S1 and S2 within normal limits. Cardio: S1 and S2 within normal with regular rhythm no murmur no gallop. Respiratory: Vesicular breath sound no crackles no wheezing. Abdominal: Soft, tenderness in the right upper quadrant., and nondistended bowel sounds present Genital/Urinary: Deferred Extremities: No cyanosis edema Neurological: Alert, awake, oriented to quadrants. Assessment: 1. Choledocholithiasis, cholecystitis. 2. Morbid obesity. Plan: Continue Zosyn. MRCP is planned for tomorrow. Thank you, Dr. Moss for involving me in taking care of this patient. Signed, Waqas Laws M.D. [id number]
[2017-09-02] MEDS: guaiFENesin 200 MG/10 ML UDC PO PRN (17:27)
--- NOTE | 2017-09-02 18:21 | Discharge Summary ---
DATE OF DISCHARGE: CHIEF COMPLAINT: The patient came to the Emergency Room complaining of abdominal pain. The patient was admitted for acute cholecystitis. HISTORY OF PRESENT ILLNESS: The patient has been having pain for the last several days, came to the ER, had a workup done and found to have acute cholecystitis, was admitted. PAST MEDICAL HISTORY: Unremarkable. SURGICAL HISTORY: Unremarkable. FAMILY HISTORY: Unremarkable. PHYSICAL EXAMINATION: GENERAL: The patient on examination alert, oriented, elderly female, not complaining of abdominal pain. HEENT: Head examination normal. LUNGS: Bilaterally Clear. CARDIOVASCULAR SYSTEM: S1 and S2 heard. ABDOMEN: Soft. Right upper quadrant tenderness was noted. The patient received fluids, Rocephin, and Flagyl in the Emergency Room. DIAGNOSES: Acute abdominal pain, acute cholecystitis and cholelithiasis, jaundice. The patient was admitted. I will go ahead and continue IV antibiotic. I will have ID doctor see the patient and the GI doctor see the patient. I will follow the patient. [facility]# [id number]
[2017-09-03] MEDS: Morphine Sulfate 4 mg/mL 1mL Syr IVP PRN (02:35)
--- NOTE | 2017-09-03 09:23 | General Progress Note ---
Subjective - Review of Systems Service Date: 09/03/17 Events since last encounter: consult dictated await ERCP prior to lap michelle discussed with mother via marketing co op Objective - Results Result Diagrams: 09/01/17 06:10 09/01/17 06:10 Recent Labs: Laboratory Last Values WBC 6.3 Th/cmm (4.8-10.8) D 09/01/17 06:10 RBC 4.36 Mil/cmm (3.80-5.10) 09/01/17 06:10 Hgb 12.9 gm/dL (12-16) 09/01/17 06:10 Hct 37.9 % (41.0-60) L 09/01/17 06:10 MCV 87.1 fl (81-100) 09/01/17 06:10 MCH 29.7 pg (27.0-31.0) 09/01/17 06:10 MCHC Differential 34.1 pg (28.0-36.0) 09/01/17 06:10 RDW 12.1 % (11.5-20.0) 09/01/17 06:10 Plt Count 251 Th/cmm (150-400) 09/01/17 06:10 MPV 9.0 fl 09/01/17 06:10 Neutrophils % 59.8 % (40.0-80.0) 09/01/17 06:10 Lymphocytes % 29.0 % (20.0-50.0) 09/01/17 06:10 Monocytes % 8.0 % (2.0-10.0) 09/01/17 06:10 Eosinophils % 2.8 % (0.0-5.0) 09/01/17 06:10 Basophils % 0.4 % (0.0-2.0) 09/01/17 06:10 Sodium 140 mEq/L (136-145) 09/01/17 06:10 Potassium 3.7 mEq/L (3.5-5.1) 09/01/17 06:10 Chloride 109 mEq/L (98-107) H 09/01/17 06:10 Carbon Dioxide 26.1 mEq/L (21.0-31.0) 09/01/17 06:10 Anion Gap 8.6 (7.0-16.0) 09/01/17 06:10 BUN 7 mg/dL (7-25) 09/01/17 06:10 Creatinine 0.5 mg/dL (0.6-1.2) L 09/01/17 06:10 Est GFR ( Amer) > 60.0 ml/min (>90) 09/01/17 06:10 Est GFR (Non-Af Amer) > 60.0 ml/min 09/01/17 06:10 BUN/Creatinine Ratio 14.0 09/01/17 06:10 Glucose 129 mg/dL (70-105) H 09/01/17 06:10 POC Glucose 92 MG/DL (70 - 105) 09/01/17 00:34 Calcium 9.0 mg/dL (8.6-10.3) 09/01/17 06:10 Total Bilirubin 3.0 mg/dL (0.3-1.0) H 09/02/17 05:42 Direct Bilirubin 1.48 mg/dL (0.0-0.2) H 09/02/17 05:42 AST 84 U/L (13-39) H 09/02/17 05:42 ALT 180 U/L (7-52) H 09/02/17 05:42 Alkaline Phosphatase 151 U/L (34-104) H 09/02/17 05:42 Total Protein 6.4 gm/dL (6.0-8.3) 09/02/17 05:42 Albumin 3.7 gm/dL (3.7-5.3) 09/02/17 05:42 Globulin 2.7 gm/dL 09/02/17 05:42 Albumin/Globulin Ratio 1.4 (1.0-1.8) 09/02/17 05:42 Triglycerides 153 mg/dL (<150) H 09/01/17 06:10 Cholesterol 162 mg/dL (<200) 09/01/17 06:10 LDL Cholesterol Direct 111 mg/dL (75-193) 09/01/17 06:10 HDL Cholesterol 27 mg/dL (23-92) 09/01/17 06:10 Amylase 44 U/L (29-103) 08/31/17 21:16 Lipase 13 U/L (11-82) 09/01/17 06:10 TSH 0.93 uIU/ml (0.34-5.60) 09/01/17 06:10 Urine Source RANDOM 08/31/17 20:05 Urine Color DARK YELLOW 08/31/17 20:05 Urine Clarity SLIGHT CLOUDY (CLEAR) H 08/31/17 20:05 Urine pH 5.5 (4.6 - 8.0) 08/31/17 20:05 Ur Specific [place] >= 1.030 (1.005-1.030) 08/31/17 20:05 Urine Protein TRACE mg/dL (NEGATIVE) 08/31/17 20:05 Urine Glucose (UA) NEGATIVE mg/dL (NEGATIVE) 08/31/17 20:05 Urine Ketones TRACE mg/dL (NEGATIVE) 08/31/17 20:05 Urine Blood NEGATIVE (NEGATIVE) 08/31/17 20:05 Urine Nitrate NEGATIVE (NEGATIVE) 08/31/17 20:05 Urine Bilirubin LARGE (NEGATIVE) H 08/31/17 20:05 Urine Ictotest POSITIVE (NEGATIVE) 08/31/17 20:05 Urine Urobilinogen 2.0 E.U./dL (0.2 - 1.0) 08/31/17 20:05 Ur Leukocyte Esterase TRACE (NEGATIVE) H 08/31/17 20:05 Urine RBC 0-2 /hpf (0-5) 08/31/17 20:05 Urine WBC 2-5 /hpf (0-5) 08/31/17 20:05 Ur Epithelial Cells MODERATE /lpf (FEW) 08/31/17 20:05 Urine Bacteria NONE SEEN /hpf (NONE SEEN) 08/31/17 20:05 Urine Test NEGATIVE 08/31/17 20:05 - Physical Exam Vitals and I&O: Vital Signs Temp 96.3 F 09/03/17 07:43 Pulse 69 09/03/17 07:43 Resp 18 09/03/17 08:34 BP 92/61 09/03/17 07:43 Pulse Ox 98 09/03/17 07:43 Intake & Output 09/02/17 09/03/17 09/03/17 18:59 06:59 18:59 Intake Total 1100 1850 Balance 1100 1850 Weight (lbs) 87.997 kg Intake: Intake, IV Amount 1100 1000 D5-0.45NS 1,000 ml @ 100 1000 1000 mls/hr IV .Q10H [facility] Rx#: [id number] Piperacillin Sodium/ 100 Tazobact 3.375 gm In Sodium Chloride 0.9% 50 ml @ 100 mls/hr IV Q8H [facility] Rx#:[id number] Oral 850 Other: # Voids 2 # Bowel Movements 0 Active Medications: Current Medications Guaifenesin (Robitussin) 200 mg PO Q4HR PRN PRN Reason: Cough or Congestion Stop: 11/01/17 12:55 Last Admin: 09/02/17 17:27 Dose: 200 mg Dextrose/Sodium Chloride (D5-0.45ns) 1,000 mls @ 100 mls/hr IV .Q10H [facility] Stop: 10/30/17 23:58 Last Infusion: 09/02/17 20:37 Dose: Infused Piperacillin Sod/Tazobactam (Sod 3.375 gm/ Sodium Chloride) 50 mls @ 100 mls/ hr IV Q8H [facility] Stop: 10/31/17 09:59 Last Admin: 09/03/17 02:30 Dose: 100 mls/hr Morphine Sulfate (Morphine) 1 mg IVP Q4H PRN PRN Reason: Pain (Severe) Stop: 10/30/17 23:58 Last Admin: 09/03/17 02:35 Dose: 1 mg Ondansetron HCl (Zofran) 4 mg IV Q6H PRN PRN Reason: Nausea / Vomiting Stop: 10/30/17 23:58 Last Admin: 09/02/17 19:00 Dose: 4 mg General: Alert, Oriented x3 Neck: Supple Cardiovascular: Regular rate Abdomen: Bowel sounds, Soft, Obese, no Tender, no Hepatomegaly, no Distended, no Rebound, no Mass, no Guarding Psych/Mental Status: Mental status NL - Procedures Procedures: Procedures Procedure Code Date ASPIRAT CURET-POST DELIV 69.52 08/23/11 MONITORING NOS 75.34 07/06/13 NON-STRESS TEST 61935 07/04/13 TREATMENT OF MISCARRIAGE 62428 08/23/11
--- NOTE | 2017-09-03 09:35 | GI Progress Note ---
Subjective - Review of Systems Service Date: 09/03/17 Subjective: Going to [facility] Objective - Results Result Diagrams: 09/01/17 06:10 09/01/17 06:10 Recent Labs: Laboratory Last Values WBC 6.3 Th/cmm (4.8-10.8) D 09/01/17 06:10 RBC 4.36 Mil/cmm (3.80-5.10) 09/01/17 06:10 Hgb 12.9 gm/dL (12-16) 09/01/17 06:10 Hct 37.9 % (41.0-60) L 09/01/17 06:10 MCV 87.1 fl (81-100) 09/01/17 06:10 MCH 29.7 pg (27.0-31.0) 09/01/17 06:10 MCHC Differential 34.1 pg (28.0-36.0) 09/01/17 06:10 RDW 12.1 % (11.5-20.0) 09/01/17 06:10 Plt Count 251 Th/cmm (150-400) 09/01/17 06:10 MPV 9.0 fl 09/01/17 06:10 Neutrophils % 59.8 % (40.0-80.0) 09/01/17 06:10 Lymphocytes % 29.0 % (20.0-50.0) 09/01/17 06:10 Monocytes % 8.0 % (2.0-10.0) 09/01/17 06:10 Eosinophils % 2.8 % (0.0-5.0) 09/01/17 06:10 Basophils % 0.4 % (0.0-2.0) 09/01/17 06:10 Sodium 140 mEq/L (136-145) 09/01/17 06:10 Potassium 3.7 mEq/L (3.5-5.1) 09/01/17 06:10 Chloride 109 mEq/L (98-107) H 09/01/17 06:10 Carbon Dioxide 26.1 mEq/L (21.0-31.0) 09/01/17 06:10 Anion Gap 8.6 (7.0-16.0) 09/01/17 06:10 BUN 7 mg/dL (7-25) 09/01/17 06:10 Creatinine 0.5 mg/dL (0.6-1.2) L 09/01/17 06:10 Est GFR ( Amer) > 60.0 ml/min (>90) 09/01/17 06:10 Est GFR (Non-Af Amer) > 60.0 ml/min 09/01/17 06:10 BUN/Creatinine Ratio 14.0 09/01/17 06:10 Glucose 129 mg/dL (70-105) H 09/01/17 06:10 POC Glucose 92 MG/DL (70 - 105) 09/01/17 00:34 Calcium 9.0 mg/dL (8.6-10.3) 09/01/17 06:10 Total Bilirubin 3.0 mg/dL (0.3-1.0) H 09/02/17 05:42 Direct Bilirubin 1.48 mg/dL (0.0-0.2) H 09/02/17 05:42 AST 84 U/L (13-39) H 09/02/17 05:42 ALT 180 U/L (7-52) H 09/02/17 05:42 Alkaline Phosphatase 151 U/L (34-104) H 09/02/17 05:42 Total Protein 6.4 gm/dL (6.0-8.3) 09/02/17 05:42 Albumin 3.7 gm/dL (3.7-5.3) 09/02/17 05:42 Globulin 2.7 gm/dL 09/02/17 05:42 Albumin/Globulin Ratio 1.4 (1.0-1.8) 09/02/17 05:42 Triglycerides 153 mg/dL (<150) H 09/01/17 06:10 Cholesterol 162 mg/dL (<200) 09/01/17 06:10 LDL Cholesterol Direct 111 mg/dL (75-193) 09/01/17 06:10 HDL Cholesterol 27 mg/dL (23-92) 09/01/17 06:10 Amylase 44 U/L (29-103) 08/31/17 21:16 Lipase 13 U/L (11-82) 09/01/17 06:10 TSH 0.93 uIU/ml (0.34-5.60) 09/01/17 06:10 Urine Source RANDOM 08/31/17 20:05 Urine Color DARK YELLOW 08/31/17 20:05 Urine Clarity SLIGHT CLOUDY (CLEAR) H 08/31/17 20:05 Urine pH 5.5 (4.6 - 8.0) 08/31/17 20:05 Ur Specific [place] >= 1.030 (1.005-1.030) 08/31/17 20:05 Urine Protein TRACE mg/dL (NEGATIVE) 08/31/17 20:05 Urine Glucose (UA) NEGATIVE mg/dL (NEGATIVE) 08/31/17 20:05 Urine Ketones TRACE mg/dL (NEGATIVE) 08/31/17 20:05 Urine Blood NEGATIVE (NEGATIVE) 08/31/17 20:05 Urine Nitrate NEGATIVE (NEGATIVE) 08/31/17 20:05 Urine Bilirubin LARGE (NEGATIVE) H 08/31/17 20:05 Urine Ictotest POSITIVE (NEGATIVE) 08/31/17 20:05 Urine Urobilinogen 2.0 E.U./dL (0.2 - 1.0) 08/31/17 20:05 Ur Leukocyte Esterase TRACE (NEGATIVE) H 08/31/17 20:05 Urine RBC 0-2 /hpf (0-5) 08/31/17 20:05 Urine WBC 2-5 /hpf (0-5) 08/31/17 20:05 Ur Epithelial Cells MODERATE /lpf (FEW) 08/31/17 20:05 Urine Bacteria NONE SEEN /hpf (NONE SEEN) 08/31/17 20:05 Urine Test NEGATIVE 08/31/17 20:05 - Physical Exam Vitals and I&O: Vital Signs Temp 96.3 F 09/03/17 07:43 Pulse 69 09/03/17 07:43 Resp 18 09/03/17 08:34 BP 92/61 09/03/17 07:43 Pulse Ox 98 09/03/17 07:43 Intake & Output 09/02/17 09/03/17 09/03/17 18:59 06:59 18:59 Intake Total 1100 1850 Balance 1100 1850 Weight (lbs) 87.997 kg Intake: Intake, IV Amount 1100 1000 D5-0.45NS 1,000 ml @ 100 1000 1000 mls/hr IV .Q10H [facility] Rx#: [id number] Piperacillin Sodium/ 100 Tazobact 3.375 gm In Sodium Chloride 0.9% 50 ml @ 100 mls/hr IV Q8H [facility] Rx#:[id number] Oral 850 Other: # Voids 2 # Bowel Movements 0 Active Medications: Current Medications Guaifenesin (Robitussin) 200 mg PO Q4HR PRN PRN Reason: Cough or Congestion Stop: 11/01/17 12:55 Last Admin: 09/02/17 17:27 Dose: 200 mg Dextrose/Sodium Chloride (D5-0.45ns) 1,000 mls @ 100 mls/hr IV .Q10H [facility] Stop: 10/30/17 23:58 Last Infusion: 09/02/17 20:37 Dose: Infused Piperacillin Sod/Tazobactam (Sod 3.375 gm/ Sodium Chloride) 50 mls @ 100 mls/ hr IV Q8H [facility] Stop: 10/31/17 09:59 Last Admin: 09/03/17 02:30 Dose: 100 mls/hr Morphine Sulfate (Morphine) 1 mg IVP Q4H PRN PRN Reason: Pain (Severe) Stop: 10/30/17 23:58 Last Admin: 09/03/17 02:35 Dose: 1 mg Ondansetron HCl (Zofran) 4 mg IV Q6H PRN PRN Reason: Nausea / Vomiting Stop: 10/30/17 23:58 Last Admin: 09/02/17 19:00 Dose: 4 mg General: Alert, Oriented x3 Neck: Supple Cardiovascular: Regular rate Abdomen: Bowel sounds, Soft, Obese, no Tender, no Hepatomegaly, no Distended, no Rebound, no Mass, no Guarding Psych/Mental Status: Mental status NL - Procedures Procedures: Procedures Procedure Code Date ASPIRAT CURET-POST DELIV 69.52 08/23/11 MONITORING NOS 75.34 07/06/13 NON-STRESS TEST 12831 07/04/13 TREATMENT OF MISCARRIAGE 09334 08/23/11 Assessment/Plan - Assessment Assessment: # Elevated LFTs # Abd pain # Cholelithiasis Suspect choledocholithiasis, although MRCP needed to confirm. Plan: - MRCP to eval for choledocho. ERCP if confirmed. If she passed stone, she will need cholecystectomy - agree with abx - full liquid diet for now - trend LFTs
--- NOTE | 2017-09-03 10:22 | Consultation ---
DATE OF CONSULTATION: 09/03/2017 SURGICAL CONSULTATION REFERRING PHYSICIAN: Dr. Moss. REASON FOR CONSULTATION: Jaundice. Thank you for referring this patient to me. HISTORY OF PRESENT ILLNESS: This is a 27-year-old female with 1-week history of abdominal pain, mostly epigastric, associated nausea, vomiting, jaundice. It was noted 4 days prior to admission, where the patient noted yellowing of her conjunctivae. PAST MEDICAL HISTORY: Unremarkable. On admission, the CBC was normal. The bilirubin is elevated to 4.6, AST of 122, ALT of 249, alkaline phosphatase of 179. This has come down since to . Ultrasound of the abdomen showed findings consistent with cholelithiasis. There is dilatation of the common duct to 1.1 raising the question of common duct stone. Liver is enlarged with fatty infiltration. PHYSICAL EXAMINATION: GENERAL: The patient is obese. Tenderness is minimal now. PLAN: Wait ERCP per [facility] [employer] consultant prior to laparoscopic cholecystectomy. JOB# [id number]
[2017-09-03] MEDS: D5-0.45NS 1,000 ML IV SCH (11:26)
--- NOTE | 2017-09-03 11:39 | General Progress Note ---
Subjective - Review of Systems Events since last encounter: consult dictated await ERCP prior to lap michelle Objective - Results Result Diagrams: 09/01/17 06:10 09/01/17 06:10 Recent Labs: Laboratory Last Values WBC 6.3 Th/cmm (4.8-10.8) D 09/01/17 06:10 RBC 4.36 Mil/cmm (3.80-5.10) 09/01/17 06:10 Hgb 12.9 gm/dL (12-16) 09/01/17 06:10 Hct 37.9 % (41.0-60) L 09/01/17 06:10 MCV 87.1 fl (81-100) 09/01/17 06:10 MCH 29.7 pg (27.0-31.0) 09/01/17 06:10 MCHC Differential 34.1 pg (28.0-36.0) 09/01/17 06:10 RDW 12.1 % (11.5-20.0) 09/01/17 06:10 Plt Count 251 Th/cmm (150-400) 09/01/17 06:10 MPV 9.0 fl 09/01/17 06:10 Neutrophils % 59.8 % (40.0-80.0) 09/01/17 06:10 Lymphocytes % 29.0 % (20.0-50.0) 09/01/17 06:10 Monocytes % 8.0 % (2.0-10.0) 09/01/17 06:10 Eosinophils % 2.8 % (0.0-5.0) 09/01/17 06:10 Basophils % 0.4 % (0.0-2.0) 09/01/17 06:10 Sodium 140 mEq/L (136-145) 09/01/17 06:10 Potassium 3.7 mEq/L (3.5-5.1) 09/01/17 06:10 Chloride 109 mEq/L (98-107) H 09/01/17 06:10 Carbon Dioxide 26.1 mEq/L (21.0-31.0) 09/01/17 06:10 Anion Gap 8.6 (7.0-16.0) 09/01/17 06:10 BUN 7 mg/dL (7-25) 09/01/17 06:10 Creatinine 0.5 mg/dL (0.6-1.2) L 09/01/17 06:10 Est GFR ( Amer) > 60.0 ml/min (>90) 09/01/17 06:10 Est GFR (Non-Af Amer) > 60.0 ml/min 09/01/17 06:10 BUN/Creatinine Ratio 14.0 09/01/17 06:10 Glucose 129 mg/dL (70-105) H 09/01/17 06:10 POC Glucose 92 MG/DL (70 - 105) 09/01/17 00:34 Calcium 9.0 mg/dL (8.6-10.3) 09/01/17 06:10 Total Bilirubin 3.0 mg/dL (0.3-1.0) H 09/02/17 05:42 Direct Bilirubin 1.48 mg/dL (0.0-0.2) H 09/02/17 05:42 AST 84 U/L (13-39) H 09/02/17 05:42 ALT 180 U/L (7-52) H 09/02/17 05:42 Alkaline Phosphatase 151 U/L (34-104) H 09/02/17 05:42 Total Protein 6.4 gm/dL (6.0-8.3) 09/02/17 05:42 Albumin 3.7 gm/dL (3.7-5.3) 09/02/17 05:42 Globulin 2.7 gm/dL 09/02/17 05:42 Albumin/Globulin Ratio 1.4 (1.0-1.8) 09/02/17 05:42 Triglycerides 153 mg/dL (<150) H 09/01/17 06:10 Cholesterol 162 mg/dL (<200) 09/01/17 06:10 LDL Cholesterol Direct 111 mg/dL (75-193) 09/01/17 06:10 HDL Cholesterol 27 mg/dL (23-92) 09/01/17 06:10 Amylase 44 U/L (29-103) 08/31/17 21:16 Lipase 13 U/L (11-82) 09/01/17 06:10 TSH 0.93 uIU/ml (0.34-5.60) 09/01/17 06:10 Urine Source RANDOM 08/31/17 20:05 Urine Color DARK YELLOW 08/31/17 20:05 Urine Clarity SLIGHT CLOUDY (CLEAR) H 08/31/17 20:05 Urine pH 5.5 (4.6 - 8.0) 08/31/17 20:05 Ur Specific [place] >= 1.030 (1.005-1.030) 08/31/17 20:05 Urine Protein TRACE mg/dL (NEGATIVE) 08/31/17 20:05 Urine Glucose (UA) NEGATIVE mg/dL (NEGATIVE) 08/31/17 20:05 Urine Ketones TRACE mg/dL (NEGATIVE) 08/31/17 20:05 Urine Blood NEGATIVE (NEGATIVE) 08/31/17 20:05 Urine Nitrate NEGATIVE (NEGATIVE) 08/31/17 20:05 Urine Bilirubin LARGE (NEGATIVE) H 08/31/17 20:05 Urine Ictotest POSITIVE (NEGATIVE) 08/31/17 20:05 Urine Urobilinogen 2.0 E.U./dL (0.2 - 1.0) 08/31/17 20:05 Ur Leukocyte Esterase TRACE (NEGATIVE) H 08/31/17 20:05 Urine RBC 0-2 /hpf (0-5) 08/31/17 20:05 Urine WBC 2-5 /hpf (0-5) 08/31/17 20:05 Ur Epithelial Cells MODERATE /lpf (FEW) 08/31/17 20:05 Urine Bacteria NONE SEEN /hpf (NONE SEEN) 08/31/17 20:05 Urine Test NEGATIVE 08/31/17 20:05 - Physical Exam Vitals and I&O: Vital Signs Temp 96.3 F 09/03/17 07:43 Pulse 69 09/03/17 07:43 Resp 18 09/03/17 08:34 BP 92/61 09/03/17 07:43 Pulse Ox 98 09/03/17 07:43 Intake & Output 09/02/17 09/03/17 09/03/17 18:59 06:59 18:59 Intake Total 1100 1900 Balance 1100 1900 Weight (lbs) 87.997 kg Intake: Intake, IV Amount 1100 1050 D5-0.45NS 1,000 ml @ 100 1000 1000 mls/hr IV .Q10H [facility] Rx#: [id number] Piperacillin Sodium/ 100 50 Tazobact 3.375 gm In Sodium Chloride 0.9% 50 ml @ 100 mls/hr IV Q8H [facility] Rx#:[id number] Oral 850 Other: # Voids 2 # Bowel Movements 0 Active Medications: Current Medications Guaifenesin (Robitussin) 200 mg PO Q4HR PRN PRN Reason: Cough or Congestion Stop: 11/01/17 12:55 Last Admin: 09/02/17 17:27 Dose: 200 mg Dextrose/Sodium Chloride (D5-0.45ns) 1,000 mls @ 100 mls/hr IV .Q10H [facility] Stop: 10/30/17 23:58 Last Admin: 09/03/17 11:26 Dose: 100 mls/hr Piperacillin Sod/Tazobactam (Sod 3.375 gm/ Sodium Chloride) 50 mls @ 100 mls/ hr IV Q8H [facility] Stop: 10/31/17 09:59 Last Admin: 09/03/17 11:32 Dose: 100 mls/hr Morphine Sulfate (Morphine) 1 mg IVP Q4H PRN PRN Reason: Pain (Severe) Stop: 10/30/17 23:58 Last Admin: 09/03/17 02:35 Dose: 1 mg Ondansetron HCl (Zofran) 4 mg IV Q6H PRN PRN Reason: Nausea / Vomiting Stop: 10/30/17 23:58 Last Admin: 09/02/17 19:00 Dose: 4 mg General: Alert, Oriented x3 Neck: Supple Cardiovascular: Regular rate Abdomen: Bowel sounds, Soft, Obese, no Tender, no Hepatomegaly, no Distended, no Rebound, no Mass, no Guarding Psych/Mental Status: Mental status NL - Procedures Procedures: Procedures Procedure Code Date ASPIRAT CURET-POST DELIV 69.52 08/23/11 MONITORING NOS 75.34 07/06/13 NON-STRESS TEST 81057 07/04/13 TREATMENT OF MISCARRIAGE 64558 08/23/11
--- NOTE | 2017-09-03 11:45 | Diagnostic Imaging Report ---
Magnetic Resonance Cholepancreatography (MRCP) HISTORY: Cholelithiasis, pain Multiple MRI sequences including 3-D high-resolution thin/thick slab, SPGR were utilized. The exam provide further delineation of the common bile duct. No definite intraluminal abnormalities. There is a normal caliber of the common bile duct (4.5 mm). No definite intraluminal abnormalities are seen. No intrahepatic biliary dilatation. Multiple intraluminal densities are seen within the gallbladder consistent with cholelithiasis. No focal hepatic lesions are seen. The spleen appears normal. No parenchymal abnormality seen within the pancreas. IMPRESSION: 1. Distended gallbladder with evidence of cholelithiasis 2. No biliary dilatation
--- NOTE | 2017-09-03 14:13 | Infectious Disease Prog Note ---
Infectious Disease Subjective - Review of Systems Service Date: 09/03/17 Subjective: No new change, no fever. Infectious Disease Objective - Results Result Diagrams: 09/01/17 06:10 09/01/17 06:10 Recent Labs: Laboratory Last Values WBC 6.3 Th/cmm (4.8-10.8) D 09/01/17 06:10 RBC 4.36 Mil/cmm (3.80-5.10) 09/01/17 06:10 Hgb 12.9 gm/dL (12-16) 09/01/17 06:10 Hct 37.9 % (41.0-60) L 09/01/17 06:10 MCV 87.1 fl (81-100) 09/01/17 06:10 MCH 29.7 pg (27.0-31.0) 09/01/17 06:10 MCHC Differential 34.1 pg (28.0-36.0) 09/01/17 06:10 RDW 12.1 % (11.5-20.0) 09/01/17 06:10 Plt Count 251 Th/cmm (150-400) 09/01/17 06:10 MPV 9.0 fl 09/01/17 06:10 Neutrophils % 59.8 % (40.0-80.0) 09/01/17 06:10 Lymphocytes % 29.0 % (20.0-50.0) 09/01/17 06:10 Monocytes % 8.0 % (2.0-10.0) 09/01/17 06:10 Eosinophils % 2.8 % (0.0-5.0) 09/01/17 06:10 Basophils % 0.4 % (0.0-2.0) 09/01/17 06:10 Sodium 140 mEq/L (136-145) 09/01/17 06:10 Potassium 3.7 mEq/L (3.5-5.1) 09/01/17 06:10 Chloride 109 mEq/L (98-107) H 09/01/17 06:10 Carbon Dioxide 26.1 mEq/L (21.0-31.0) 09/01/17 06:10 Anion Gap 8.6 (7.0-16.0) 09/01/17 06:10 BUN 7 mg/dL (7-25) 09/01/17 06:10 Creatinine 0.5 mg/dL (0.6-1.2) L 09/01/17 06:10 Est GFR ( Amer) > 60.0 ml/min (>90) 09/01/17 06:10 Est GFR (Non-Af Amer) > 60.0 ml/min 09/01/17 06:10 BUN/Creatinine Ratio 14.0 09/01/17 06:10 Glucose 129 mg/dL (70-105) H 09/01/17 06:10 POC Glucose 92 MG/DL (70 - 105) 09/01/17 00:34 Calcium 9.0 mg/dL (8.6-10.3) 09/01/17 06:10 Total Bilirubin 3.0 mg/dL (0.3-1.0) H 09/02/17 05:42 Direct Bilirubin 1.48 mg/dL (0.0-0.2) H 09/02/17 05:42 AST 84 U/L (13-39) H 09/02/17 05:42 ALT 180 U/L (7-52) H 09/02/17 05:42 Alkaline Phosphatase 151 U/L (34-104) H 09/02/17 05:42 Total Protein 6.4 gm/dL (6.0-8.3) 09/02/17 05:42 Albumin 3.7 gm/dL (3.7-5.3) 09/02/17 05:42 Globulin 2.7 gm/dL 09/02/17 05:42 Albumin/Globulin Ratio 1.4 (1.0-1.8) 09/02/17 05:42 Triglycerides 153 mg/dL (<150) H 09/01/17 06:10 Cholesterol 162 mg/dL (<200) 09/01/17 06:10 LDL Cholesterol Direct 111 mg/dL (75-193) 09/01/17 06:10 HDL Cholesterol 27 mg/dL (23-92) 09/01/17 06:10 Amylase 44 U/L (29-103) 08/31/17 21:16 Lipase 13 U/L (11-82) 09/01/17 06:10 TSH 0.93 uIU/ml (0.34-5.60) 09/01/17 06:10 Urine Source RANDOM 08/31/17 20:05 Urine Color DARK YELLOW 03/16/18 20:05 Urine Clarity SLIGHT CLOUDY (CLEAR) H 08/31/17 20:05 Urine pH 5.5 (4.6 - 8.0) 08/31/17 20:05 Ur Specific [place] >= 1.030 (1.005-1.030) 08/31/17 20:05 Urine Protein TRACE mg/dL (NEGATIVE) 08/31/17 20:05 Urine Glucose (UA) NEGATIVE mg/dL (NEGATIVE) 08/31/17 20:05 Urine Ketones TRACE mg/dL (NEGATIVE) 08/31/17 20:05 Urine Blood NEGATIVE (NEGATIVE) 08/31/17 20:05 Urine Nitrate NEGATIVE (NEGATIVE) 08/31/17 20:05 Urine Bilirubin LARGE (NEGATIVE) H 08/31/17 20:05 Urine Ictotest POSITIVE (NEGATIVE) 08/31/17 20:05 Urine Urobilinogen 2.0 E.U./dL (0.2 - 1.0) 08/31/17 20:05 Ur Leukocyte Esterase TRACE (NEGATIVE) H 08/31/17 20:05 Urine RBC 0-2 /hpf (0-5) 08/31/17 20:05 Urine WBC 2-5 /hpf (0-5) 08/31/17 20:05 Ur Epithelial Cells MODERATE /lpf (FEW) 08/31/17 20:05 Urine Bacteria NONE SEEN /hpf (NONE SEEN) 08/31/17 20:05 Urine Test NEGATIVE 08/31/17 20:05 - Physical Exam Vitals and I&O: Vital Signs Temp 97.1 F 09/03/17 11:47 Pulse 59 09/03/17 11:47 Resp 18 09/03/17 11:47 BP 106/61 09/03/17 11:47 Pulse Ox 98 09/03/17 11:47 Intake & Output 09/02/17 09/03/17 09/03/17 18:59 06:59 18:59 Intake Total 1100 1900 Balance 1100 1900 Weight (lbs) 87.997 kg Intake: Intake, IV Amount 1100 1050 D5-0.45NS 1,000 ml @ 100 1000 1000 mls/hr IV .Q10H [facility] Rx#: [id number] Piperacillin Sodium/ 100 50 Tazobact 3.375 gm In Sodium Chloride 0.9% 50 ml @ 100 mls/hr IV Q8H [facility] Rx#:[id number] Oral 850 Other: # Voids 2 # Bowel Movements 0 Active Medications: Current Medications Guaifenesin (Robitussin) 200 mg PO Q4HR PRN PRN Reason: Cough or Congestion Stop: 11/01/17 12:55 Last Admin: 09/02/17 17:27 Dose: 200 mg Dextrose/Sodium Chloride (D5-0.45ns) 1,000 mls @ 100 mls/hr IV .Q10H [facility] Stop: 10/30/17 23:58 Last Admin: 09/03/17 11:26 Dose: 100 mls/hr Piperacillin Sod/Tazobactam (Sod 3.375 gm/ Sodium Chloride) 50 mls @ 100 mls/ hr IV Q8H [facility] Stop: 10/31/17 09:59 Last Admin: 09/03/17 11:32 Dose: 100 mls/hr Morphine Sulfate (Morphine) 1 mg IVP Q4H PRN PRN Reason: Pain (Severe) Stop: 10/30/17 23:58 Last Admin: 09/03/17 02:35 Dose: 1 mg Ondansetron HCl (Zofran) 4 mg IV Q6H PRN PRN Reason: Nausea / Vomiting Stop: 10/30/17 23:58 Last Admin: 09/02/17 19:00 Dose: 4 mg General: no acute distress, well developed, well nourished HEENT: atraumatic, normocephalic, PERRLA, EOMI, moist mucous membrane, dry Neck: supple, no thyromegaly, no lymphadenopathy Cardiovascular: S1S2, regular Lungs: clear to auscultation bilaterally, clear to percussion Abdomen: soft, no tender, no distended Extremities: no cyanosis, no clubbing, no edema Neurological: awake, alert, oriented Skin: intact - Procedures Procedures: Procedures Procedure Code Date ASPIRAT CURET-POST DELIV 69.52 08/23/11 MONITORING NOS 75.34 07/06/13 NON-STRESS TEST 00078 07/04/13 TREATMENT OF MISCARRIAGE 70798 08/23/11 Infectious Disease Assmt/Plan - Assessment Assessment: 1. Choledocholithiasis, cholecystitis. 2. Morbid obesity. - Plan Plan: Continue Zosyn. MRCP is planned.
[2017-09-03 16:50] LABS: INR 0.94 (0.5-1.4); PROTHROMBIN TIME (TEST) 9.8 SECONDS (9.5-11.5)
[2017-09-03] MEDS: guaiFENesin 200 MG/10 ML UDC PO PRN (19:22)
[2017-09-04 06:22] LABS: % BASOPHILS 0.2 % (0.0-2.0); % EOSINOPHILS 3.1 % (0.0-5.0); % LYMPHOCYTES 24.5 % (20.0-50.0); % MONOCYTES 5.9 % (2.0-10.0); % NEUTROPHILS 66.3 % (40.0-80.0); EOSINOPHILE ABSOLUTE 0.3 Th/cmm (0.1-0.4); HEMATOCRIT 39.6 % (41.0-60); HEMOGLOBIN 13.5 gm/dL (12-16); LYMPHOCYTE ABSOLUTE 2.2 Th/cmm (1.5-3.0); MEAN CELL VOLUME 86.8 fl (81-100); MEAN CORPUSCULAR HEMOGLOBIN 29.7 pg (27.0-31.0); MEAN CORPUSCULAR HGB CONC 34.2 pg (28.0-36.0); MONOCYTE ABSOLUTE 0.5 Th/cmm (0.3-1.0); NEUTROPHILE ABSOLUTE 5.8 Th/cmm (1.8-8.0); PLATELET COUNT 254 Th/cmm (150-400); RED BLOOD COUNT 4.56 Mil/cmm (3.80-5.10); RED CELL DISTRIBUTION WIDTH 12.2 % (11.5-20.0); WHITE BLOOD COUNT 8.8 Th/cmm (4.8-10.8)
[2017-09-04 06:32] LABS: INR 0.9 (0.5-1.4); PROTHROMBIN TIME (TEST) 9.3 SECONDS (9.5-11.5)
[2017-09-04 06:33] LABS: ALB/GLOB RATIO 1.2 (1.0-1.8); ALBUMIN 3.9 gm/dL (3.7-5.3); ALKALINE PHOSPHATASE 141 U/L (34-104); ANION GAP 7.8 (7.0-16.0); BILIRUBIN,TOTAL 1.9 mg/dL (0.3-1.0); BUN - UREA NITROGEN 8 mg/dL (7-25); CALCIUM SERUM 9.6 mg/dL (8.6-10.3); CARBON DIOXIDE 27.1 mEq/L (21.0-31.0); CHLORIDE 106 mEq/L (98-107); CREATININE - SERUM 0.6 mg/dL (0.6-1.2); GFR AFRICAN-AMERICAN > 60.0 ml/min (>90); GFR NON AFRICAN-AMERICAN > 60.0 ml/min; GLUCOSE 122 mg/dL (70-105); POTASSIUM SERUM 3.9 mEq/L (3.5-5.1); SGOT 108 U/L (13-39); SGPT/ALT 175 U/L (7-52); SODIUM SERUM 137 mEq/L (136-145); TOTAL PROTEIN,SERUM 7.3 gm/dL (6.0-8.3)
--- NOTE | 2017-09-04 09:41 | GI Progress Note ---
Subjective - Review of Systems Service Date: 09/04/17 Subjective: Feeling well, for lap michelle today Objective - Results Result Diagrams: 09/04/17 05:26 09/04/17 05:26 Recent Labs: Laboratory Last Values WBC 8.8 Th/cmm (4.8-10.8) 09/04/17 05:26 RBC 4.56 Mil/cmm (3.80-5.10) 09/04/17 05:26 Hgb 13.5 gm/dL (12-16) 09/04/17 05:26 Hct 39.6 % (41.0-60) L 09/04/17 05:26 MCV 86.8 fl (81-100) 09/04/17 05:26 MCH 29.7 pg (27.0-31.0) 09/04/17 05:26 MCHC Differential 34.2 pg (28.0-36.0) 09/04/17 05:26 RDW 12.2 % (11.5-20.0) 09/04/17 05:26 Plt Count 254 Th/cmm (150-400) 09/04/17 05:26 MPV 9.0 fl 09/04/17 05:26 Neutrophils % 66.3 % (40.0-80.0) 09/04/17 05:26 Lymphocytes % 24.5 % (20.0-50.0) 09/04/17 05:26 Monocytes % 5.9 % (2.0-10.0) 09/04/17 05:26 Eosinophils % 3.1 % (0.0-5.0) 09/04/17 05:26 Basophils % 0.2 % (0.0-2.0) 09/04/17 05:26 PT 9.3 SECONDS (9.5-11.5) L 09/04/17 05:26 INR 0.90 (0.5-1.4) 09/04/17 05:26 PTT (Actin FS) 23.9 SECONDS (26.0-38.0) L 09/03/17 16:32 Sodium 137 mEq/L (136-145) 09/04/17 05:26 Potassium 3.9 mEq/L (3.5-5.1) 09/04/17 05:26 Chloride 106 mEq/L (98-107) 09/04/17 05:26 Carbon Dioxide 27.1 mEq/L (21.0-31.0) 09/04/17 05:26 Anion Gap 7.8 (7.0-16.0) 09/04/17 05:26 BUN 8 mg/dL (7-25) 09/04/17 05:26 Creatinine 0.6 mg/dL (0.6-1.2) 09/04/17 05:26 Est GFR ( Amer) > 60.0 ml/min (>90) 09/04/17 05:26 Est GFR (Non-Af Amer) > 60.0 ml/min 09/04/17 05:26 BUN/Creatinine Ratio 13.3 09/04/17 05:26 Glucose 122 mg/dL (70-105) H 09/04/17 05:26 POC Glucose 92 MG/DL (70 - 105) 09/01/17 00:34 Calcium 9.6 mg/dL (8.6-10.3) 09/04/17 05:26 Total Bilirubin 1.9 mg/dL (0.3-1.0) H 09/04/17 05:26 Direct Bilirubin 1.48 mg/dL (0.0-0.2) H 09/02/17 05:42 AST 108 U/L (13-39) H 09/04/17 05:26 ALT 175 U/L (7-52) H 09/04/17 05:26 Alkaline Phosphatase 141 U/L (34-104) H 09/04/17 05:26 Total Protein 7.3 gm/dL (6.0-8.3) 09/04/17 05:26 Albumin 3.9 gm/dL (3.7-5.3) 09/04/17 05:26 Globulin 3.4 gm/dL 09/04/17 05:26 Albumin/Globulin Ratio 1.2 (1.0-1.8) 09/04/17 05:26 Triglycerides 153 mg/dL (<150) H 09/01/17 06:10 Cholesterol 162 mg/dL (<200) 09/01/17 06:10 LDL Cholesterol Direct 111 mg/dL (75-193) 09/01/17 06:10 HDL Cholesterol 27 mg/dL (23-92) 09/01/17 06:10 Amylase 44 U/L (29-103) 08/31/17 21:16 Lipase 13 U/L (11-82) 09/01/17 06:10 TSH 0.93 uIU/ml (0.34-5.60) 09/01/17 06:10 Serum , Qual NEGATIVE (NEGATIVE) 09/03/17 16:32 Urine Source RANDOM 08/31/17 20:05 Urine Color DARK YELLOW 08/31/17 20:05 Urine Clarity SLIGHT CLOUDY (CLEAR) H 08/31/17 20:05 Urine pH 5.5 (4.6 - 8.0) 08/31/17 20:05 Ur Specific [place] >= 1.030 (1.005-1.030) 08/31/17 20:05 Urine Protein TRACE mg/dL (NEGATIVE) 08/31/17 20:05 Urine Glucose (UA) NEGATIVE mg/dL (NEGATIVE) 08/31/17 20:05 Urine Ketones TRACE mg/dL (NEGATIVE) 08/31/17 20:05 Urine Blood NEGATIVE (NEGATIVE) 08/31/17 20:05 Urine Nitrate NEGATIVE (NEGATIVE) 08/31/17 20:05 Urine Bilirubin LARGE (NEGATIVE) H 08/31/17 20:05 Urine Ictotest POSITIVE (NEGATIVE) 08/31/17 20:05 Urine Urobilinogen 2.0 E.U./dL (0.2 - 1.0) 08/31/17 20:05 Ur Leukocyte Esterase TRACE (NEGATIVE) H 08/31/17 20:05 Urine RBC 0-2 /hpf (0-5) 08/31/17 20:05 Urine WBC 2-5 /hpf (0-5) 08/31/17 20:05 Ur Epithelial Cells MODERATE /lpf (FEW) 08/31/17 20:05 Urine Bacteria NONE SEEN /hpf (NONE SEEN) 08/31/17 20:05 Urine Test NEGATIVE 08/31/17 20:05 - Physical Exam Vitals and I&O: Vital Signs Temp 97.6 F 09/04/17 04:00 Pulse 68 09/04/17 04:00 Resp 17 09/04/17 04:00 BP 103/60 09/04/17 04:00 Pulse Ox 98 09/04/17 04:00 Intake & Output 09/03/17 09/04/17 09/04/17 18:59 06:59 18:59 Intake Total 600 50 Balance 600 50 Weight (lbs) 87.997 kg 92.079 kg Intake: Intake, IV Amount 100 50 Piperacillin Sodium/ 100 50 Tazobact 3.375 gm In Sodium Chloride 0.9% 50 ml @ 100 mls/hr IV Q8H [facility] Rx#:[id number] Oral 500 Other: # Voids 3 2 # Bowel Movements 2 0 Active Medications: Current Medications Guaifenesin (Robitussin) 200 mg PO Q4HR PRN PRN Reason: Cough or Congestion Stop: 11/01/17 12:55 Last Admin: 09/03/17 19:22 Dose: 200 mg Dextrose/Sodium Chloride (D5-0.45ns) 1,000 mls @ 100 mls/hr IV .Q10H [facility] Stop: 10/30/17 23:58 Last Admin: 09/03/17 11:26 Dose: 100 mls/hr Piperacillin Sod/Tazobactam (Sod 3.375 gm/ Sodium Chloride) 50 mls @ 100 mls/ hr IV Q8H [facility] Stop: 10/31/17 09:59 Last Admin: 09/04/17 09:04 Dose: 100 mls/hr Morphine Sulfate (Morphine) 1 mg IVP Q4H PRN PRN Reason: Pain (Severe) Stop: 10/30/17 23:58 Last Admin: 09/03/17 02:35 Dose: 1 mg Ondansetron HCl (Zofran) 4 mg IV Q6H PRN PRN Reason: Nausea / Vomiting Stop: 10/30/17 23:58 Last Admin: 09/02/17 19:00 Dose: 4 mg General: Alert, Oriented x3 Neck: Supple Cardiovascular: Regular rate Abdomen: Bowel sounds, Soft, Obese, no Tender, no Hepatomegaly, no Distended, no Rebound, no Mass, no Guarding Psych/Mental Status: Mental status NL - Procedures Procedures: Procedures Procedure Code Date ASPIRAT CURET-POST DELIV 69.52 08/23/11 MONITORING NOS 75.34 07/06/13 NON-STRESS TEST 14183 07/04/13 TREATMENT OF MISCARRIAGE 15528 08/23/11 Assessment/Plan - Assessment Assessment: # Elevated LFTs # Abd pain # Cholelithiasis MRCP shows clear bile duct, but shows cholelithiasis. Suspect that she passed a stone at this point. She will be having lap michelle today with Dr Ibrahim. Plan: - lap michelle today - agree with abx - trend LFTs
[2017-09-04] MEDS ORDERED: fentaNYL Citrate 100 mcg/2mL Vial ONE (11:46)
[2017-09-04] MEDS ORDERED: Propofol **SURGERY USE ONLY** 20 ML IV ONE (11:48)
[2017-09-04] MEDS ORDERED: Neostigmine 10mg/10mL Vial ONE (11:48)
[2017-09-04] MEDS ORDERED: Meperidine 50 mg/mL 1mL Syr ONE (13:57)
[2017-09-04] MEDS ORDERED: Meperidine 25 mg/mL 1mL Syr IVP PRN ×4 (14:18)
--- NOTE | 2017-09-04 14:29 | Internal Medicine Prog Note ---
Internal Medicine Subjective - Subjective Service Date: 09/04/17 (IN OR FOR [facility]) Internal Medicine Objective - Results Result Diagrams: 09/04/17 05:26 09/04/17 05:26 Recent Labs: Laboratory Last Values WBC 8.8 Th/cmm (4.8-10.8) 09/04/17 05:26 RBC 4.56 Mil/cmm (3.80-5.10) 09/04/17 05:26 Hgb 13.5 gm/dL (12-16) 09/04/17 05:26 Hct 39.6 % (41.0-60) L 09/04/17 05:26 MCV 86.8 fl (81-100) 09/04/17 05:26 MCH 29.7 pg (27.0-31.0) 09/04/17 05:26 MCHC Differential 34.2 pg (28.0-36.0) 09/04/17 05:26 RDW 12.2 % (11.5-20.0) 09/04/17 05:26 Plt Count 254 Th/cmm (150-400) 09/04/17 05:26 MPV 9.0 fl 09/04/17 05:26 Neutrophils % 66.3 % (40.0-80.0) 09/04/17 05:26 Lymphocytes % 24.5 % (20.0-50.0) 09/04/17 05:26 Monocytes % 5.9 % (2.0-10.0) 09/04/17 05:26 Eosinophils % 3.1 % (0.0-5.0) 09/04/17 05:26 Basophils % 0.2 % (0.0-2.0) 09/04/17 05:26 PT 9.3 SECONDS (9.5-11.5) L 09/04/17 05:26 INR 0.90 (0.5-1.4) 09/04/17 05:26 PTT (Actin FS) 23.9 SECONDS (26.0-38.0) L 09/03/17 16:32 Sodium 137 mEq/L (136-145) 09/04/17 05:26 Potassium 3.9 mEq/L (3.5-5.1) 09/04/17 05:26 Chloride 106 mEq/L (98-107) 09/04/17 05:26 Carbon Dioxide 27.1 mEq/L (21.0-31.0) 09/04/17 05:26 Anion Gap 7.8 (7.0-16.0) 09/04/17 05:26 BUN 8 mg/dL (7-25) 09/04/17 05:26 Creatinine 0.6 mg/dL (0.6-1.2) 09/04/17 05:26 Est GFR ( Amer) > 60.0 ml/min (>90) 09/04/17 05:26 Est GFR (Non-Af Amer) > 60.0 ml/min 09/04/17 05:26 BUN/Creatinine Ratio 13.3 09/04/17 05:26 Glucose 122 mg/dL (70-105) H 09/04/17 05:26 POC Glucose 92 MG/DL (70 - 105) 09/01/17 00:34 Calcium 9.6 mg/dL (8.6-10.3) 09/04/17 05:26 Total Bilirubin 1.9 mg/dL (0.3-1.0) H 09/04/17 05:26 Direct Bilirubin 1.48 mg/dL (0.0-0.2) H 09/02/17 05:42 AST 108 U/L (13-39) H 09/04/17 05:26 ALT 175 U/L (7-52) H 09/04/17 05:26 Alkaline Phosphatase 141 U/L (34-104) H 09/04/17 05:26 Total Protein 7.3 gm/dL (6.0-8.3) 09/04/17 05:26 Albumin 3.9 gm/dL (3.7-5.3) 09/04/17 05:26 Globulin 3.4 gm/dL 09/04/17 05:26 Albumin/Globulin Ratio 1.2 (1.0-1.8) 09/04/17 05:26 Triglycerides 153 mg/dL (<150) H 09/01/17 06:10 Cholesterol 162 mg/dL (<200) 09/01/17 06:10 LDL Cholesterol Direct 111 mg/dL (75-193) 09/01/17 06:10 HDL Cholesterol 27 mg/dL (23-92) 09/01/17 06:10 Amylase 44 U/L (29-103) 08/31/17 21:16 Lipase 13 U/L (11-82) 09/01/17 06:10 TSH 0.93 uIU/ml (0.34-5.60) 09/01/17 06:10 Serum , Qual NEGATIVE (NEGATIVE) 09/03/17 16:32 Urine Source RANDOM 08/31/17 20:05 Urine Color DARK YELLOW 08/31/17 20:05 Urine Clarity SLIGHT CLOUDY (CLEAR) H 08/31/17 20:05 Urine pH 5.5 (4.6 - 8.0) 08/31/17 20:05 Ur Specific Goodman >= 1.030 (1.005-1.030) 08/31/17 20:05 Urine Protein TRACE mg/dL (NEGATIVE) 08/31/17 20:05 Urine Glucose (UA) NEGATIVE mg/dL (NEGATIVE) 08/31/17 20:05 Urine Ketones TRACE mg/dL (NEGATIVE) 08/31/17 20:05 Urine Blood NEGATIVE (NEGATIVE) 08/31/17 20:05 Urine Nitrate NEGATIVE (NEGATIVE) 08/31/17 20:05 Urine Bilirubin LARGE (NEGATIVE) H 08/31/17 20:05 Urine Ictotest POSITIVE (NEGATIVE) 08/31/17 20:05 Urine Urobilinogen 2.0 E.U./dL (0.2 - 1.0) 08/31/17 20:05 Ur Leukocyte Esterase TRACE (NEGATIVE) H 08/31/17 20:05 Urine RBC 0-2 /hpf (0-5) 08/31/17 20:05 Urine WBC 2-5 /hpf (0-5) 08/31/17 20:05 Ur Epithelial Cells MODERATE /lpf (FEW) 08/31/17 20:05 Urine Bacteria NONE SEEN /hpf (NONE SEEN) 08/31/17 20:05 Urine Test NEGATIVE 08/31/17 20:05 - Physical Exam Vitals and I&O: Vital Signs Temp 97.6 F 09/04/17 04:00 Pulse 68 09/04/17 04:00 Resp 17 09/04/17 04:00 BP 103/60 09/04/17 04:00 Pulse Ox 98 09/04/17 04:00 Intake & Output 09/03/17 09/04/17 09/04/17 18:59 06:59 18:59 Intake Total 600 50 Balance 600 50 Weight (lbs) 194 lb 203 lb Intake: Intake, IV Amount 100 50 Piperacillin Sodium/ 100 50 Tazobact 3.375 gm In Sodium Chloride 0.9% 50 ml @ 100 mls/hr IV Q8H [facility] Rx#:[id number] Oral 500 Other: # Voids 3 2 # Bowel Movements 2 0 Active Medications: Current Medications Guaifenesin (Robitussin) 200 mg PO Q4HR PRN PRN Reason: Cough or Congestion Stop: 11/01/17 12:55 Last Admin: 09/03/17 19:22 Dose: 200 mg Dextrose/Sodium Chloride (D5-0.45ns) 1,000 mls @ 100 mls/hr IV .Q10H [facility] Stop: 10/30/17 23:58 Last Admin: 09/03/17 11:26 Dose: 100 mls/hr Piperacillin Sod/Tazobactam (Sod 3.375 gm/ Sodium Chloride) 50 mls @ 100 mls/ hr IV Q8H [facility] Stop: 10/31/17 09:59 Last Admin: 09/04/17 09:04 Dose: 100 mls/hr Lactated Ringer's (Lactated Ringer) 1,000 mls @ 0 mls/hr IV .Q0M AKASH PRN Reason: TKO Stop: 09/05/17 14:29 Meperidine HCl (Demerol) 12.5 mg IVP UD PRN PRN Reason: POST OP MODERATE PAIN Stop: 09/05/17 14:17 Meperidine HCl (Demerol) 12.5 mg IVP UD PRN PRN Reason: POST OP MODERATE PAIN Stop: 09/05/17 14:17 Meperidine HCl (Demerol) 25 mg IVP UD PRN PRN Reason: POST OP SEVERE PAIN Stop: 09/05/17 14:17 Meperidine HCl (Demerol) 12.5 mg IVP UD PRN PRN Reason: SHIVERING Stop: 09/05/17 14:17 Morphine Sulfate (Morphine) 1 mg IVP Q4H PRN PRN Reason: Pain (Severe) Stop: 10/30/17 23:58 Last Admin: 09/03/17 02:35 Dose: 1 mg Ondansetron HCl (Zofran) 4 mg IV Q6H PRN PRN Reason: Nausea / Vomiting Stop: 10/30/17 23:58 Last Admin: 09/02/17 19:00 Dose: 4 mg - Procedures Procedures: Procedures Procedure Code Date ASPIRAT CURET-POST DELIV 69.52 08/23/11 MONITORING NOS 75.34 07/06/13 NON-STRESS TEST 59242 07/04/13 TREATMENT OF MISCARRIAGE 60826 08/23/11 Internal Medicine Assmt/Plan - Assessment Assessment: 1. Choledocholithiasis, cholecystitis. 2. Morbid obesity. - Plan Plan: LAP AMY TODAY FOLLOW UP LABS IN AM CONTINUE CURRENT PLAN OF CARE
[2017-09-04] MEDS ORDERED: Lactated Ringer 1,000 ML IV SCH (14:30)
[2017-09-04] MEDS: Morphine Sulfate 4 mg/mL 1mL Syr IVP PRN ×4 (15:52→23:36)
--- NOTE | 2017-09-04 15:56 | Operative Report ---
DATE OF SURGERY: 09/04/2017 PREOPERATIVE DIAGNOSES: 1. Calculous cholecystitis with jaundice. 2. Urinary tract infection. POSTOPERATIVE DIAGNOSES: 1. Calculous cholecystitis with jaundice. 2. Urinary tract infection. OPERATION DONE: Laparoscopic cholecystectomy. SURGEON: ANGELINA MEDINA MD MASKING MACHINE OPERATOR: Dr. Toledo. ANESTHESIA: General. ANESTHESIOLOGIST: Dr Arriaza. ESTIMATED BLOOD LOSS: 10 mL. INDICATIONS FOR SURGERY: The patient had abdominal pain with multiple gallstones. MRCP did not show any common duct stones. A bilirubin on the day of surgery had gone to 1.9 from 3.0. DESCRIPTION OF PROCEDURE: Informed consent discussed with the patient and prior to surgery. Complications were discussed via science interpreter. DESCRIPTION OF PROCEDURE: The patient was given general anesthesia. The abdomen was prepped with ChloraPrep and draped in appropriate manner. An infraumbilical incision was made along the skin line. A Veress needle was inserted. Insufflation of CO2 was carried out. A 10 mm trocar was placed through this and the scope was introduced. There was good visualization of the intra-abdominal cavity. Another 10 mm trocar was placed in upper abdomen at the midline and two 5 mm trocars were placed in the right flank. The operating table is elevated at the head and turned to the left side. There were some adhesions to the gallbladder at its midportion. This will lyse bluntly and sharply with cautery. The fundus and infundibulum of the gallbladder was grasped. There was a large stone at the infundibulum. Dissection was carried out bluntly at this point to totally expose the infundibulum and its connection with the cystic duct, which was rather large. A right angle clamp was placed around behind this structure and following good identification to its origin in the infundibulum, gallbladder. This was clipped 3 times distally, once proximally and divided. Cystic artery was next identified, clipped and divided. Cautery dissection was carried upwards until the gallbladder was removed in Endobag. Irrigation with saline solution was carried out and a bleeder was electrocoagulated at liver bed. Insufflation of CO2 with Vijaya was then carried out. All fluid is aspirated. Trocars were removed and the trocar sites were infiltrated with 0.5% Marcaine with epinephrine and closed with 4-0 Vicryl. The patient tolerated the procedure well and will be sent back to her room. JOB# [id number]
--- NOTE | 2017-09-04 22:23 | Infectious Disease Prog Note ---
Infectious Disease Subjective - Review of Systems Service Date: 09/04/17 Events since last encounter: Lap michelle was performed by Dr Ibrahim. Subjective: No new change, no fever. Infectious Disease Objective - Results Result Diagrams: 09/04/17 05:26 09/04/17 05:26 Recent Labs: Laboratory Last Values WBC 8.8 Th/cmm (4.8-10.8) 09/04/17 05:26 RBC 4.56 Mil/cmm (3.80-5.10) 09/04/17 05:26 Hgb 13.5 gm/dL (12-16) 09/04/17 05:26 Hct 39.6 % (41.0-60) L 09/04/17 05:26 MCV 86.8 fl (81-100) 09/04/17 05:26 MCH 29.7 pg (27.0-31.0) 09/04/17 05:26 MCHC Differential 34.2 pg (28.0-36.0) 09/04/17 05:26 RDW 12.2 % (11.5-20.0) 09/04/17 05:26 Plt Count 254 Th/cmm (150-400) 09/04/17 05:26 MPV 9.0 fl 09/04/17 05:26 Neutrophils % 66.3 % (40.0-80.0) 09/04/17 05:26 Lymphocytes % 24.5 % (20.0-50.0) 09/04/17 05:26 Monocytes % 5.9 % (2.0-10.0) 09/04/17 05:26 Eosinophils % 3.1 % (0.0-5.0) 09/04/17 05:26 Basophils % 0.2 % (0.0-2.0) 09/04/17 05:26 PT 9.3 SECONDS (9.5-11.5) L 09/04/17 05:26 INR 0.90 (0.5-1.4) 09/04/17 05:26 PTT (Actin FS) 23.9 SECONDS (26.0-38.0) L 09/03/17 16:32 Sodium 137 mEq/L (136-145) 09/04/17 05:26 Potassium 3.9 mEq/L (3.5-5.1) 09/04/17 05:26 Chloride 106 mEq/L (98-107) 09/04/17 05:26 Carbon Dioxide 27.1 mEq/L (21.0-31.0) 09/04/17 05:26 Anion Gap 7.8 (7.0-16.0) 09/04/17 05:26 BUN 8 mg/dL (7-25) 09/04/17 05:26 Creatinine 0.6 mg/dL (0.6-1.2) 09/04/17 05:26 Est GFR ( Amer) > 60.0 ml/min (>90) 09/04/17 05:26 Est GFR (Non-Af Amer) > 60.0 ml/min 09/04/17 05:26 BUN/Creatinine Ratio 13.3 09/04/17 05:26 Glucose 122 mg/dL (70-105) H 09/04/17 05:26 POC Glucose 92 MG/DL (70 - 105) 09/01/17 00:34 Calcium 9.6 mg/dL (8.6-10.3) 09/04/17 05:26 Total Bilirubin 1.9 mg/dL (0.3-1.0) H 09/04/17 05:26 Direct Bilirubin 1.48 mg/dL (0.0-0.2) H 09/02/17 05:42 AST 108 U/L (13-39) H 09/04/17 05:26 ALT 175 U/L (7-52) H 09/04/17 05:26 Alkaline Phosphatase 141 U/L (34-104) H 09/04/17 05:26 Total Protein 7.3 gm/dL (6.0-8.3) 09/04/17 05:26 Albumin 3.9 gm/dL (3.7-5.3) 09/04/17 05:26 Globulin 3.4 gm/dL 09/04/17 05:26 Albumin/Globulin Ratio 1.2 (1.0-1.8) 09/04/17 05:26 Triglycerides 153 mg/dL (<150) H 09/01/17 06:10 Cholesterol 162 mg/dL (<200) 09/01/17 06:10 LDL Cholesterol Direct 111 mg/dL (75-193) 09/01/17 06:10 HDL Cholesterol 27 mg/dL (23-92) 09/01/17 06:10 Amylase 44 U/L (29-103) 08/31/17 21:16 Lipase 13 U/L (11-82) 09/01/17 06:10 TSH 0.93 uIU/ml (0.34-5.60) 09/01/17 06:10 Serum , Qual NEGATIVE (NEGATIVE) 09/03/17 16:32 Urine Source RANDOM 08/31/17 20:05 Urine Color DARK YELLOW 08/31/17 20:05 Urine Clarity SLIGHT CLOUDY (CLEAR) H 08/31/17 20:05 Urine pH 5.5 (4.6 - 8.0) 08/31/17 20:05 Ur Specific [place] >= 1.030 (1.005-1.030) 08/31/17 20:05 Urine Protein TRACE mg/dL (NEGATIVE) 08/31/17 20:05 Urine Glucose (UA) NEGATIVE mg/dL (NEGATIVE) 08/31/17 20:05 Urine Ketones TRACE mg/dL (NEGATIVE) 08/31/17 20:05 Urine Blood NEGATIVE (NEGATIVE) 08/31/17 20:05 Urine Nitrate NEGATIVE (NEGATIVE) 08/31/17 20:05 Urine Bilirubin LARGE (NEGATIVE) H 08/31/17 20:05 Urine Ictotest POSITIVE (NEGATIVE) 08/31/17 20:05 Urine Urobilinogen 2.0 E.U./dL (0.2 - 1.0) 08/31/17 20:05 Ur Leukocyte Esterase TRACE (NEGATIVE) H 08/31/17 20:05 Urine RBC 0-2 /hpf (0-5) 08/31/17 20:05 Urine WBC 2-5 /hpf (0-5) 08/31/17 20:05 Ur Epithelial Cells MODERATE /lpf (FEW) 08/31/17 20:05 Urine Bacteria NONE SEEN /hpf (NONE SEEN) 08/31/17 20:05 Urine Test NEGATIVE 08/31/17 20:05 - Physical Exam Vitals and I&O: Vital Signs Temp 98.2 F 09/04/17 20:00 Pulse 77 09/04/17 20:00 Resp 18 09/04/17 20:00 BP 124/63 09/04/17 20:00 Pulse Ox 97 09/04/17 20:00 Intake & Output 09/04/17 09/04/17 09/05/17 06:59 18:59 06:59 Intake Total 50 50 Balance 50 50 Weight (lbs) 92.079 kg Intake: Intake, IV Amount 50 50 Piperacillin Sodium/ 50 50 Tazobact 3.375 gm In Sodium Chloride 0.9% 50 ml @ 100 mls/hr IV Q8H [facility] Rx#:[id number] Other: # Voids 2 # Bowel Movements 0 Active Medications: Current Medications Guaifenesin (Robitussin) 200 mg PO Q4HR PRN PRN Reason: Cough or Congestion Stop: 11/01/17 12:55 Last Admin: 09/03/17 19:22 Dose: 200 mg Dextrose/Sodium Chloride (D5-0.45ns) 1,000 mls @ 100 mls/hr IV .Q10H [facility] Stop: 10/30/17 23:58 Last Admin: 09/03/17 11:26 Dose: 100 mls/hr Piperacillin Sod/Tazobactam (Sod 3.375 gm/ Sodium Chloride) 50 mls @ 100 mls/ hr IV Q8H [facility] Stop: 10/31/17 09:59 Last Admin: 09/04/17 17:11 Dose: 100 mls/hr Morphine Sulfate (Morphine) 1 mg IVP Q4H PRN PRN Reason: Pain (Severe) Stop: 10/30/17 23:58 Last Admin: 09/04/17 15:52 Dose: 1 mg Morphine Sulfate (Morphine) 2 mg IVP Q3HR PRN PRN Reason: Pain (Severe) Stop: 11/03/17 16:26 Last Admin: 09/04/17 20:19 Dose: 2 mg Ondansetron HCl (Zofran) 4 mg IV Q6H PRN PRN Reason: Nausea / Vomiting Stop: 10/30/17 23:58 Last Admin: 09/02/17 19:00 Dose: 4 mg General: no acute distress, well developed, well nourished HEENT: atraumatic, normocephalic, PERRLA, EOMI Neck: supple, no thyromegaly Cardiovascular: S1S2, regular Lungs: clear to auscultation bilaterally, clear to percussion Abdomen: soft, tender, no distended Extremities: no cyanosis, no clubbing Neurological: awake, alert, oriented Skin: intact - Procedures Procedures: Procedures Procedure Code Date ASPIRAT CURET-POST DELIV 69.52 08/23/11 MONITORING NOS 75.34 07/06/13 NON-STRESS TEST 36617 07/04/13 TREATMENT OF MISCARRIAGE 19299 08/23/11 Infectious Disease Assmt/Plan - Assessment Assessment: 1. Choledocholithiasis, cholecystitis. 2. Morbid obesity. - Plan Plan: Continue Zosyn.
[2017-09-05] MEDS: Morphine Sulfate 4 mg/mL 1mL Syr IVP PRN ×4 (02:43→17:10)
[2017-09-05] MEDS: D5-0.45NS 1,000 ML IV SCH (02:43)
[2017-09-05 06:17] LABS: % BASOPHILS 0.1 % (0.0-2.0); % EOSINOPHILS 0.6 % (0.0-5.0); % LYMPHOCYTES 16.2 % (20.0-50.0); % MONOCYTES 5.3 % (2.0-10.0); % NEUTROPHILS 77.8 % (40.0-80.0); EOSINOPHILE ABSOLUTE 0.1 Th/cmm (0.1-0.4); HEMATOCRIT 36.8 % (41.0-60); HEMOGLOBIN 12.8 gm/dL (12-16); LYMPHOCYTE ABSOLUTE 1.8 Th/cmm (1.5-3.0); MEAN CELL VOLUME 86.6 fl (81-100); MEAN CORPUSCULAR HEMOGLOBIN 30.1 pg (27.0-31.0); MEAN CORPUSCULAR HGB CONC 34.8 pg (28.0-36.0); MEAN PLATELET VOLUME 8.8 fl; MONOCYTE ABSOLUTE 0.6 Th/cmm (0.3-1.0); NEUTROPHILE ABSOLUTE 8.4 Th/cmm (1.8-8.0); PLATELET COUNT 271 Th/cmm (150-400); RED BLOOD COUNT 4.25 Mil/cmm (3.80-5.10); WHITE BLOOD COUNT 10.9 Th/cmm (4.8-10.8)
[2017-09-05 06:29] LABS: ALB/GLOB RATIO 1.2 (1.0-1.8); ALBUMIN 3.7 gm/dL (3.7-5.3); ALKALINE PHOSPHATASE 121 U/L (34-104); ANION GAP 8.9 (7.0-16.0); BILIRUBIN,TOTAL 1.7 mg/dL (0.3-1.0); BUN - UREA NITROGEN 5 mg/dL (7-25); CALCIUM SERUM 9.3 mg/dL (8.6-10.3); CARBON DIOXIDE 25.8 mEq/L (21.0-31.0); CHLORIDE 104 mEq/L (98-107); CREATININE - SERUM 0.4 mg/dL (0.6-1.2); GFR AFRICAN-AMERICAN > 60.0 ml/min (>90); GFR NON AFRICAN-AMERICAN > 60.0 ml/min; GLUCOSE 126 mg/dL (70-105); POTASSIUM SERUM 3.7 mEq/L (3.5-5.1); SGOT 112 U/L (13-39); SGPT/ALT 173 U/L (7-52); SODIUM SERUM 135 mEq/L (136-145); TOTAL PROTEIN,SERUM 6.9 gm/dL (6.0-8.3)
--- NOTE | 2017-09-05 08:54 | GI Progress Note ---
Subjective - Review of Systems Service Date: 09/05/17 Subjective: Recovering post op today, sore at incision site Objective - Results Result Diagrams: 09/05/17 05:53 09/05/17 05:53 Recent Labs: Laboratory Last Values WBC 10.9 Th/cmm (4.8-10.8) H 09/05/17 05:53 RBC 4.25 Mil/cmm (3.80-5.10) 09/05/17 05:53 Hgb 12.8 gm/dL (12-16) 09/05/17 05:53 Hct 36.8 % (41.0-60) L 09/05/17 05:53 MCV 86.6 fl (81-100) 09/05/17 05:53 MCH 30.1 pg (27.0-31.0) 09/05/17 05:53 MCHC Differential 34.8 pg (28.0-36.0) 09/05/17 05:53 RDW 12.0 % (11.5-20.0) 09/05/17 05:53 Plt Count 271 Th/cmm (150-400) 09/05/17 05:53 MPV 8.8 fl 09/05/17 05:53 Neutrophils % 77.8 % (40.0-80.0) 09/05/17 05:53 Lymphocytes % 16.2 % (20.0-50.0) L 09/05/17 05:53 Monocytes % 5.3 % (2.0-10.0) 09/05/17 05:53 Eosinophils % 0.6 % (0.0-5.0) 09/05/17 05:53 Basophils % 0.1 % (0.0-2.0) 09/05/17 05:53 PT 9.3 SECONDS (9.5-11.5) L 09/04/17 05:26 INR 0.90 (0.5-1.4) 09/04/17 05:26 PTT (Actin FS) 23.9 SECONDS (26.0-38.0) L 09/03/17 16:32 Sodium 135 mEq/L (136-145) L 09/05/17 05:53 Potassium 3.7 mEq/L (3.5-5.1) 09/05/17 05:53 Chloride 104 mEq/L (98-107) 09/05/17 05:53 Carbon Dioxide 25.8 mEq/L (21.0-31.0) 09/05/17 05:53 Anion Gap 8.9 (7.0-16.0) 09/05/17 05:53 BUN 5 mg/dL (7-25) L 09/05/17 05:53 Creatinine 0.4 mg/dL (0.6-1.2) L 09/05/17 05:53 Est GFR ( Amer) > 60.0 ml/min (>90) 09/05/17 05:53 Est GFR (Non-Af Amer) > 60.0 ml/min 09/05/17 05:53 BUN/Creatinine Ratio 12.5 09/05/17 05:53 Glucose 126 mg/dL (70-105) H 09/05/17 05:53 POC Glucose 92 MG/DL (70 - 105) 09/01/17 00:34 Calcium 9.3 mg/dL (8.6-10.3) 09/05/17 05:53 Total Bilirubin 1.7 mg/dL (0.3-1.0) H 09/05/17 05:53 Direct Bilirubin 1.48 mg/dL (0.0-0.2) H 09/02/17 05:42 AST 112 U/L (13-39) H 09/05/17 05:53 ALT 173 U/L (7-52) H 09/05/17 05:53 Alkaline Phosphatase 121 U/L (34-104) H 09/05/17 05:53 Total Protein 6.9 gm/dL (6.0-8.3) 09/05/17 05:53 Albumin 3.7 gm/dL (3.7-5.3) 09/05/17 05:53 Globulin 3.2 gm/dL 09/05/17 05:53 Albumin/Globulin Ratio 1.2 (1.0-1.8) 09/05/17 05:53 Triglycerides 153 mg/dL (<150) H 09/01/17 06:10 Cholesterol 162 mg/dL (<200) 09/01/17 06:10 LDL Cholesterol Direct 111 mg/dL (75-193) 09/01/17 06:10 HDL Cholesterol 27 mg/dL (23-92) 09/01/17 06:10 Amylase 44 U/L (29-103) 08/31/17 21:16 Lipase 13 U/L (11-82) 09/01/17 06:10 TSH 0.93 uIU/ml (0.34-5.60) 09/01/17 06:10 Serum , Qual NEGATIVE (NEGATIVE) 09/03/17 16:32 Urine Source RANDOM 08/31/17 20:05 Urine Color DARK YELLOW 08/31/17 20:05 Urine Clarity SLIGHT CLOUDY (CLEAR) H 08/31/17 20:05 Urine pH 5.5 (4.6 - 8.0) 08/31/17 20:05 Ur Specific [place] >= 1.030 (1.005-1.030) 08/31/17 20:05 Urine Protein TRACE mg/dL (NEGATIVE) 08/31/17 20:05 Urine Glucose (UA) NEGATIVE mg/dL (NEGATIVE) 08/31/17 20:05 Urine Ketones TRACE mg/dL (NEGATIVE) 08/31/17 20:05 Urine Blood NEGATIVE (NEGATIVE) 08/31/17 20:05 Urine Nitrate NEGATIVE (NEGATIVE) 08/31/17 20:05 Urine Bilirubin LARGE (NEGATIVE) H 08/31/17 20:05 Urine Ictotest POSITIVE (NEGATIVE) 08/31/17 20:05 Urine Urobilinogen 2.0 E.U./dL (0.2 - 1.0) 08/31/17 20:05 Ur Leukocyte Esterase TRACE (NEGATIVE) H 08/31/17 20:05 Urine RBC 0-2 /hpf (0-5) 08/31/17 20:05 Urine WBC 2-5 /hpf (0-5) 08/31/17 20:05 Ur Epithelial Cells MODERATE /lpf (FEW) 08/31/17 20:05 Urine Bacteria NONE SEEN /hpf (NONE SEEN) 08/31/17 20:05 Urine Test NEGATIVE 08/31/17 20:05 - Physical Exam Vitals and I&O: Vital Signs Temp 98 F 09/05/17 08:00 Pulse 72 09/05/17 08:00 Resp 18 09/05/17 08:00 BP 144/69 09/05/17 08:00 Pulse Ox 95 09/05/17 08:00 Intake & Output 09/04/17 09/05/17 09/05/17 18:59 06:59 18:59 Intake Total 100 Balance 100 Weight (lbs) 91.172 kg Intake: Intake, IV Amount 100 Piperacillin Sodium/ 100 Tazobact 3.375 gm In Sodium Chloride 0.9% 50 ml @ 100 mls/hr IV Q8H [facility] Rx#:[id number] Active Medications: Current Medications Guaifenesin (Robitussin) 200 mg PO Q4HR PRN PRN Reason: Cough or Congestion Stop: 11/01/17 12:55 Last Admin: 09/03/17 19:22 Dose: 200 mg Dextrose/Sodium Chloride (D5-0.45ns) 1,000 mls @ 100 mls/hr IV .Q10H [facility] Stop: 10/30/17 23:58 Last Admin: 09/05/17 02:43 Dose: 100 mls/hr Piperacillin Sod/Tazobactam (Sod 3.375 gm/ Sodium Chloride) 50 mls @ 100 mls/ hr IV Q8H [facility] Stop: 10/31/17 09:59 Last Admin: 09/05/17 02:43 Dose: 100 mls/hr Morphine Sulfate (Morphine) 1 mg IVP Q4H PRN PRN Reason: Pain (Severe) Stop: 10/30/17 23:58 Last Admin: 09/04/17 15:52 Dose: 1 mg Morphine Sulfate (Morphine) 2 mg IVP Q3HR PRN PRN Reason: Pain (Severe) Stop: 11/03/17 16:26 Last Admin: 09/05/17 06:10 Dose: 2 mg Ondansetron HCl (Zofran) 4 mg IV Q6H PRN PRN Reason: Nausea / Vomiting Stop: 10/30/17 23:58 Last Admin: 09/02/17 19:00 Dose: 4 mg General: Alert, Oriented x3 Neck: Supple Cardiovascular: Regular rate Abdomen: Bowel sounds, Soft, Obese, no Tender, no Hepatomegaly, no Distended, no Rebound, no Mass, no Guarding Psych/Mental Status: Mental status NL - Procedures Procedures: Procedures Procedure Code Date ASPIRAT CURET-POST DELIV 69.52 08/23/11 MONITORING NOS 75.34 07/06/13 NON-STRESS TEST 18844 07/04/13 LAPAROSCOPIC CHOLECYSTECTOMY 23702 08/31/17 RESECTION OF GALLBLADDER, PERCUTANEOUS ENDOSCOPIC APPROACH [id number] 08/31/17 TREATMENT OF MISCARRIAGE 75573 08/23/11 Assessment/Plan - Assessment Assessment: # Elevated LFTs # Abd pain # Cholelithiasis MRCP shows clear bile duct, but shows cholelithiasis. Suspect that she passed a stone at this point. Now s/p lap michelle on 09/04. Plan: - post op care as per Dr Ibrahim - agree with abx - trend LFTs GI to see as needed, please call with any questions
--- NOTE | 2017-09-05 09:31 | General Progress Note ---
Subjective - Review of Systems Events since last encounter: patient awake alert c/o tenderness on incision site no fever Objective - Results Result Diagrams: 09/05/17 05:53 09/05/17 05:53 Recent Labs: Laboratory Last Values WBC 10.9 Th/cmm (4.8-10.8) H 09/05/17 05:53 RBC 4.25 Mil/cmm (3.80-5.10) 09/05/17 05:53 Hgb 12.8 gm/dL (12-16) 09/05/17 05:53 Hct 36.8 % (41.0-60) L 09/05/17 05:53 MCV 86.6 fl (81-100) 09/05/17 05:53 MCH 30.1 pg (27.0-31.0) 09/05/17 05:53 MCHC Differential 34.8 pg (28.0-36.0) 09/05/17 05:53 RDW 12.0 % (11.5-20.0) 09/05/17 05:53 Plt Count 271 Th/cmm (150-400) 09/05/17 05:53 MPV 8.8 fl 09/05/17 05:53 Neutrophils % 77.8 % (40.0-80.0) 09/05/17 05:53 Lymphocytes % 16.2 % (20.0-50.0) L 09/05/17 05:53 Monocytes % 5.3 % (2.0-10.0) 09/05/17 05:53 Eosinophils % 0.6 % (0.0-5.0) 09/05/17 05:53 Basophils % 0.1 % (0.0-2.0) 09/05/17 05:53 PT 9.3 SECONDS (9.5-11.5) L 09/04/17 05:26 INR 0.90 (0.5-1.4) 09/04/17 05:26 PTT (Actin FS) 23.9 SECONDS (26.0-38.0) L 09/03/17 16:32 Sodium 135 mEq/L (136-145) L 09/05/17 05:53 Potassium 3.7 mEq/L (3.5-5.1) 09/05/17 05:53 Chloride 104 mEq/L (98-107) 09/05/17 05:53 Carbon Dioxide 25.8 mEq/L (21.0-31.0) 09/05/17 05:53 Anion Gap 8.9 (7.0-16.0) 09/05/17 05:53 BUN 5 mg/dL (7-25) L 09/05/17 05:53 Creatinine 0.4 mg/dL (0.6-1.2) L 09/05/17 05:53 Est GFR ( Amer) > 60.0 ml/min (>90) 09/05/17 05:53 Est GFR (Non-Af Amer) > 60.0 ml/min 09/05/17 05:53 BUN/Creatinine Ratio 12.5 09/05/17 05:53 Glucose 126 mg/dL (70-105) H 09/05/17 05:53 POC Glucose 92 MG/DL (70 - 105) 09/01/17 00:34 Calcium 9.3 mg/dL (8.6-10.3) 09/05/17 05:53 Total Bilirubin 1.7 mg/dL (0.3-1.0) H 09/05/17 05:53 Direct Bilirubin 1.48 mg/dL (0.0-0.2) H 09/02/17 05:42 AST 112 U/L (13-39) H 09/05/17 05:53 ALT 173 U/L (7-52) H 09/05/17 05:53 Alkaline Phosphatase 121 U/L (34-104) H 09/05/17 05:53 Total Protein 6.9 gm/dL (6.0-8.3) 09/05/17 05:53 Albumin 3.7 gm/dL (3.7-5.3) 09/05/17 05:53 Globulin 3.2 gm/dL 09/05/17 05:53 Albumin/Globulin Ratio 1.2 (1.0-1.8) 09/05/17 05:53 Triglycerides 153 mg/dL (<150) H 09/01/17 06:10 Cholesterol 162 mg/dL (<200) 09/01/17 06:10 LDL Cholesterol Direct 111 mg/dL (75-193) 09/01/17 06:10 HDL Cholesterol 27 mg/dL (23-92) 09/01/17 06:10 Amylase 44 U/L (29-103) 08/31/17 21:16 Lipase 13 U/L (11-82) 09/01/17 06:10 TSH 0.93 uIU/ml (0.34-5.60) 09/01/17 06:10 Serum , Qual NEGATIVE (NEGATIVE) 09/03/17 16:32 Urine Source RANDOM 08/31/17 20:05 Urine Color DARK YELLOW 08/31/17 20:05 Urine Clarity SLIGHT CLOUDY (CLEAR) H 08/31/17 20:05 Urine pH 5.5 (4.6 - 8.0) 08/31/17 20:05 Ur Specific [place] >= 1.030 (1.005-1.030) 08/31/17 20:05 Urine Protein TRACE mg/dL (NEGATIVE) 08/31/17 20:05 Urine Glucose (UA) NEGATIVE mg/dL (NEGATIVE) 08/31/17 20:05 Urine Ketones TRACE mg/dL (NEGATIVE) 08/31/17 20:05 Urine Blood NEGATIVE (NEGATIVE) 08/31/17 20:05 Urine Nitrate NEGATIVE (NEGATIVE) 08/31/17 20:05 Urine Bilirubin LARGE (NEGATIVE) H 08/31/17 20:05 Urine Ictotest POSITIVE (NEGATIVE) 08/31/17 20:05 Urine Urobilinogen 2.0 E.U./dL (0.2 - 1.0) 08/31/17 20:05 Ur Leukocyte Esterase TRACE (NEGATIVE) H 08/31/17 20:05 Urine RBC 0-2 /hpf (0-5) 08/31/17 20:05 Urine WBC 2-5 /hpf (0-5) 08/31/17 20:05 Ur Epithelial Cells MODERATE /lpf (FEW) 08/31/17 20:05 Urine Bacteria NONE SEEN /hpf (NONE SEEN) 08/31/17 20:05 Urine Test NEGATIVE 08/31/17 20:05 - Physical Exam Vitals and I&O: Vital Signs Temp 98 F 09/05/17 08:00 Pulse 72 09/05/17 08:00 Resp 18 09/05/17 08:00 BP 144/69 09/05/17 08:00 Pulse Ox 95 09/05/17 08:00 Intake & Output 09/04/17 09/05/17 09/05/17 18:59 06:59 18:59 Intake Total 100 Balance 100 Weight (lbs) 91.172 kg Intake: Intake, IV Amount 100 Piperacillin Sodium/ 100 Tazobact 3.375 gm In Sodium Chloride 0.9% 50 ml @ 100 mls/hr IV Q8H [facility] Rx#:[id number] Active Medications: Current Medications Guaifenesin (Robitussin) 200 mg PO Q4HR PRN PRN Reason: Cough or Congestion Stop: 11/01/17 12:55 Last Admin: 09/03/17 19:22 Dose: 200 mg Dextrose/Sodium Chloride (D5-0.45ns) 1,000 mls @ 100 mls/hr IV .Q10H [facility] Stop: 10/30/17 23:58 Last Admin: 09/05/17 02:43 Dose: 100 mls/hr Piperacillin Sod/Tazobactam (Sod 3.375 gm/ Sodium Chloride) 50 mls @ 100 mls/ hr IV Q8H [facility] Stop: 10/31/17 09:59 Last Admin: 09/05/17 02:43 Dose: 100 mls/hr Morphine Sulfate (Morphine) 1 mg IVP Q4H PRN PRN Reason: Pain (Severe) Stop: 10/30/17 23:58 Last Admin: 09/04/17 15:52 Dose: 1 mg Morphine Sulfate (Morphine) 2 mg IVP Q3HR PRN PRN Reason: Pain (Severe) Stop: 11/03/17 16:26 Last Admin: 09/05/17 06:10 Dose: 2 mg Ondansetron HCl (Zofran) 4 mg IV Q6H PRN PRN Reason: Nausea / Vomiting Stop: 10/30/17 23:58 Last Admin: 09/02/17 19:00 Dose: 4 mg General: Alert, Oriented x3 Neck: Supple Cardiovascular: Regular rate Abdomen: Bowel sounds, Soft, Obese, no Tender, no Hepatomegaly, no Distended, no Rebound, no Mass, no Guarding Psych/Mental Status: Mental status NL - Procedures Procedures: Procedures Procedure Code Date ASPIRAT CURET-POST DELIV 69.52 08/23/11 MONITORING NOS 75.34 07/06/13 NON-STRESS TEST 24382 07/04/13 LAPAROSCOPIC CHOLECYSTECTOMY 99737 08/31/17 RESECTION OF GALLBLADDER, PERCUTANEOUS ENDOSCOPIC APPROACH [id number] 08/31/17 TREATMENT OF MISCARRIAGE 99990 08/23/11
--- NOTE | 2017-09-05 10:24 | General Progress Note ---
Subjective - Review of Systems Service Date: 09/05/17 Events since last encounter: labs trending down post op pain normal ok to DC may shower low fat diet for 30 days oral pain meds Objective - Results Result Diagrams: 09/05/17 05:53 09/05/17 05:53 Recent Labs: Laboratory Last Values WBC 10.9 Th/cmm (4.8-10.8) H 09/05/17 05:53 RBC 4.25 Mil/cmm (3.80-5.10) 09/05/17 05:53 Hgb 12.8 gm/dL (12-16) 09/05/17 05:53 Hct 36.8 % (41.0-60) L 09/05/17 05:53 MCV 86.6 fl (81-100) 09/05/17 05:53 MCH 30.1 pg (27.0-31.0) 09/05/17 05:53 MCHC Differential 34.8 pg (28.0-36.0) 09/05/17 05:53 RDW 12.0 % (11.5-20.0) 09/05/17 05:53 Plt Count 271 Th/cmm (150-400) 09/05/17 05:53 MPV 8.8 fl 09/05/17 05:53 Neutrophils % 77.8 % (40.0-80.0) 09/05/17 05:53 Lymphocytes % 16.2 % (20.0-50.0) L 09/05/17 05:53 Monocytes % 5.3 % (2.0-10.0) 09/05/17 05:53 Eosinophils % 0.6 % (0.0-5.0) 09/05/17 05:53 Basophils % 0.1 % (0.0-2.0) 09/05/17 05:53 PT 9.3 SECONDS (9.5-11.5) L 09/04/17 05:26 INR 0.90 (0.5-1.4) 09/04/17 05:26 PTT (Actin FS) 23.9 SECONDS (26.0-38.0) L 09/03/17 16:32 Sodium 135 mEq/L (136-145) L 09/05/17 05:53 Potassium 3.7 mEq/L (3.5-5.1) 09/05/17 05:53 Chloride 104 mEq/L (98-107) 09/05/17 05:53 Carbon Dioxide 25.8 mEq/L (21.0-31.0) 09/05/17 05:53 Anion Gap 8.9 (7.0-16.0) 09/05/17 05:53 BUN 5 mg/dL (7-25) L 09/05/17 05:53 Creatinine 0.4 mg/dL (0.6-1.2) L 09/05/17 05:53 Est GFR ( Amer) > 60.0 ml/min (>90) 09/05/17 05:53 Est GFR (Non-Af Amer) > 60.0 ml/min 09/05/17 05:53 BUN/Creatinine Ratio 12.5 09/05/17 05:53 Glucose 126 mg/dL (70-105) H 09/05/17 05:53 POC Glucose 92 MG/DL (70 - 105) 09/01/17 00:34 Calcium 9.3 mg/dL (8.6-10.3) 09/05/17 05:53 Total Bilirubin 1.7 mg/dL (0.3-1.0) H 09/05/17 05:53 Direct Bilirubin 1.48 mg/dL (0.0-0.2) H 09/02/17 05:42 AST 112 U/L (13-39) H 09/05/17 05:53 ALT 173 U/L (7-52) H 09/05/17 05:53 Alkaline Phosphatase 121 U/L (34-104) H 09/05/17 05:53 Total Protein 6.9 gm/dL (6.0-8.3) 09/05/17 05:53 Albumin 3.7 gm/dL (3.7-5.3) 09/05/17 05:53 Globulin 3.2 gm/dL 09/05/17 05:53 Albumin/Globulin Ratio 1.2 (1.0-1.8) 09/05/17 05:53 Triglycerides 153 mg/dL (<150) H 09/01/17 06:10 Cholesterol 162 mg/dL (<200) 09/01/17 06:10 LDL Cholesterol Direct 111 mg/dL (75-193) 09/01/17 06:10 HDL Cholesterol 27 mg/dL (23-92) 09/01/17 06:10 Amylase 44 U/L (29-103) 08/31/17 21:16 Lipase 13 U/L (11-82) 09/01/17 06:10 TSH 0.93 uIU/ml (0.34-5.60) 09/01/17 06:10 Serum , Qual NEGATIVE (NEGATIVE) 09/03/17 16:32 Urine Source RANDOM 08/31/17 20:05 Urine Color DARK YELLOW 08/31/17 20:05 Urine Clarity SLIGHT CLOUDY (CLEAR) H 08/31/17 20:05 Urine pH 5.5 (4.6 - 8.0) 08/31/17 20:05 Ur Specific [place] >= 1.030 (1.005-1.030) 08/31/17 20:05 Urine Protein TRACE mg/dL (NEGATIVE) 08/31/17 20:05 Urine Glucose (UA) NEGATIVE mg/dL (NEGATIVE) 08/31/17 20:05 Urine Ketones TRACE mg/dL (NEGATIVE) 08/31/17 20:05 Urine Blood NEGATIVE (NEGATIVE) 08/31/17 20:05 Urine Nitrate NEGATIVE (NEGATIVE) 08/31/17 20:05 Urine Bilirubin LARGE (NEGATIVE) H 08/31/17 20:05 Urine Ictotest POSITIVE (NEGATIVE) 08/31/17 20:05 Urine Urobilinogen 2.0 E.U./dL (0.2 - 1.0) 08/31/17 20:05 Ur Leukocyte Esterase TRACE (NEGATIVE) H 08/31/17 20:05 Urine RBC 0-2 /hpf (0-5) 08/31/17 20:05 Urine WBC 2-5 /hpf (0-5) 08/31/17 20:05 Ur Epithelial Cells MODERATE /lpf (FEW) 08/31/17 20:05 Urine Bacteria NONE SEEN /hpf (NONE SEEN) 08/31/17 20:05 Urine Test NEGATIVE 08/31/17 20:05 - Physical Exam Vitals and I&O: Vital Signs Temp 98 F 09/05/17 08:00 Pulse 72 09/05/17 08:00 Resp 18 09/05/17 08:00 BP 144/69 09/05/17 08:00 Pulse Ox 95 09/05/17 08:00 Intake & Output 09/04/17 09/05/17 09/05/17 18:59 06:59 18:59 Intake Total 100 50 Balance 100 50 Weight (lbs) 91.172 kg Intake: Intake, IV Amount 100 50 Piperacillin Sodium/ 100 50 Tazobact 3.375 gm In Sodium Chloride 0.9% 50 ml @ 100 mls/hr IV Q8H [facility] Rx#:[id number] Active Medications: Current Medications Guaifenesin (Robitussin) 200 mg PO Q4HR PRN PRN Reason: Cough or Congestion Stop: 11/01/17 12:55 Last Admin: 09/03/17 19:22 Dose: 200 mg Dextrose/Sodium Chloride (D5-0.45ns) 1,000 mls @ 100 mls/hr IV .Q10H [facility] Stop: 10/30/17 23:58 Last Admin: 09/05/17 02:43 Dose: 100 mls/hr Piperacillin Sod/Tazobactam (Sod 3.375 gm/ Sodium Chloride) 50 mls @ 100 mls/ hr IV Q8H [facility] Stop: 10/31/17 09:59 Last Admin: 09/05/17 09:59 Dose: 100 mls/hr Morphine Sulfate (Morphine) 1 mg IVP Q4H PRN PRN Reason: Pain (Severe) Stop: 10/30/17 23:58 Last Admin: 09/04/17 15:52 Dose: 1 mg Morphine Sulfate (Morphine) 2 mg IVP Q3HR PRN PRN Reason: Pain (Severe) Stop: 11/03/17 16:26 Last Admin: 09/05/17 06:10 Dose: 2 mg Ondansetron HCl (Zofran) 4 mg IV Q6H PRN PRN Reason: Nausea / Vomiting Stop: 10/30/17 23:58 Last Admin: 09/02/17 19:00 Dose: 4 mg General: Alert, Oriented x3 Neck: Supple Cardiovascular: Regular rate Abdomen: Bowel sounds, Soft, Obese, no Tender, no Hepatomegaly, no Distended, no Rebound, no Mass, no Guarding Psych/Mental Status: Mental status NL - Procedures Procedures: Procedures Procedure Code Date ASPIRAT CURET-POST DELIV 69.52 08/23/11 MONITORING NOS 75.34 07/06/13 NON-STRESS TEST 08746 07/04/13 LAPAROSCOPIC CHOLECYSTECTOMY 44827 08/31/17 RESECTION OF GALLBLADDER, PERCUTANEOUS ENDOSCOPIC APPROACH [id number] 08/31/17 TREATMENT OF MISCARRIAGE 02928 08/23/11
--- NOTE | 2017-09-05 15:37 | Infectious Disease Prog Note ---
Infectious Disease Subjective - Review of Systems Service Date: 09/05/17 Subjective: No new change, no fever. Infectious Disease Objective - Results Result Diagrams: 09/05/17 05:53 09/05/17 05:53 Recent Labs: Laboratory Last Values WBC 10.9 Th/cmm (4.8-10.8) H 09/05/17 05:53 RBC 4.25 Mil/cmm (3.80-5.10) 09/05/17 05:53 Hgb 12.8 gm/dL (12-16) 09/05/17 05:53 Hct 36.8 % (41.0-60) L 09/05/17 05:53 MCV 86.6 fl (81-100) 09/05/17 05:53 MCH 30.1 pg (27.0-31.0) 09/05/17 05:53 MCHC Differential 34.8 pg (28.0-36.0) 09/05/17 05:53 RDW 12.0 % (11.5-20.0) 09/05/17 05:53 Plt Count 271 Th/cmm (150-400) 09/05/17 05:53 MPV 8.8 fl 09/05/17 05:53 Neutrophils % 77.8 % (40.0-80.0) 09/05/17 05:53 Lymphocytes % 16.2 % (20.0-50.0) L 09/05/17 05:53 Monocytes % 5.3 % (2.0-10.0) 09/05/17 05:53 Eosinophils % 0.6 % (0.0-5.0) 09/05/17 05:53 Basophils % 0.1 % (0.0-2.0) 09/05/17 05:53 PT 9.3 SECONDS (9.5-11.5) L 09/04/17 05:26 INR 0.90 (0.5-1.4) 09/04/17 05:26 PTT (Actin FS) 23.9 SECONDS (26.0-38.0) L 09/03/17 16:32 Sodium 135 mEq/L (136-145) L 09/05/17 05:53 Potassium 3.7 mEq/L (3.5-5.1) 09/05/17 05:53 Chloride 104 mEq/L (98-107) 09/05/17 05:53 Carbon Dioxide 25.8 mEq/L (21.0-31.0) 09/05/17 05:53 Anion Gap 8.9 (7.0-16.0) 09/05/17 05:53 BUN 5 mg/dL (7-25) L 09/05/17 05:53 Creatinine 0.4 mg/dL (0.6-1.2) L 09/05/17 05:53 Est GFR ( Amer) > 60.0 ml/min (>90) 09/05/17 05:53 Est GFR (Non-Af Amer) > 60.0 ml/min 09/05/17 05:53 BUN/Creatinine Ratio 12.5 09/05/17 05:53 Glucose 126 mg/dL (70-105) H 09/05/17 05:53 POC Glucose 92 MG/DL (70 - 105) 09/01/17 00:34 Calcium 9.3 mg/dL (8.6-10.3) 09/05/17 05:53 Total Bilirubin 1.7 mg/dL (0.3-1.0) H 09/05/17 05:53 Direct Bilirubin 1.48 mg/dL (0.0-0.2) H 09/02/17 05:42 AST 112 U/L (13-39) H 09/05/17 05:53 ALT 173 U/L (7-52) H 09/05/17 05:53 Alkaline Phosphatase 121 U/L (34-104) H 09/05/17 05:53 Total Protein 6.9 gm/dL (6.0-8.3) 09/05/17 05:53 Albumin 3.7 gm/dL (3.7-5.3) 09/05/17 05:53 Globulin 3.2 gm/dL 09/05/17 05:53 Albumin/Globulin Ratio 1.2 (1.0-1.8) 09/05/17 05:53 Triglycerides 153 mg/dL (<150) H 09/01/17 06:10 Cholesterol 162 mg/dL (<200) 09/01/17 06:10 LDL Cholesterol Direct 111 mg/dL (75-193) 09/01/17 06:10 HDL Cholesterol 27 mg/dL (23-92) 09/01/17 06:10 Amylase 44 U/L (29-103) 08/31/17 21:16 Lipase 13 U/L (11-82) 09/01/17 06:10 TSH 0.93 uIU/ml (0.34-5.60) 09/01/17 06:10 Serum , Qual NEGATIVE (NEGATIVE) 09/03/17 16:32 Urine Source RANDOM 08/31/17 20:05 Urine Color DARK YELLOW 08/31/17 20:05 Urine Clarity SLIGHT CLOUDY (CLEAR) H 08/31/17 20:05 Urine pH 5.5 (4.6 - 8.0) 08/31/17 20:05 Ur Specific [place] >= 1.030 (1.005-1.030) 08/31/17 20:05 Urine Protein TRACE mg/dL (NEGATIVE) 08/31/17 20:05 Urine Glucose (UA) NEGATIVE mg/dL (NEGATIVE) 08/31/17 20:05 Urine Ketones TRACE mg/dL (NEGATIVE) 08/31/17 20:05 Urine Blood NEGATIVE (NEGATIVE) 08/31/17 20:05 Urine Nitrate NEGATIVE (NEGATIVE) 08/31/17 20:05 Urine Bilirubin LARGE (NEGATIVE) H 08/31/17 20:05 Urine Ictotest POSITIVE (NEGATIVE) 08/31/17 20:05 Urine Urobilinogen 2.0 E.U./dL (0.2 - 1.0) 08/31/17 20:05 Ur Leukocyte Esterase TRACE (NEGATIVE) H 08/31/17 20:05 Urine RBC 0-2 /hpf (0-5) 08/31/17 20:05 Urine WBC 2-5 /hpf (0-5) 08/31/17 20:05 Ur Epithelial Cells MODERATE /lpf (FEW) 08/31/17 20:05 Urine Bacteria NONE SEEN /hpf (NONE SEEN) 08/31/17 20:05 Urine Test NEGATIVE 08/31/17 20:05 - Physical Exam Vitals and I&O: Vital Signs Temp 97.9 F 09/05/17 12:12 Pulse 95 09/05/17 12:12 Resp 19 09/05/17 12:12 BP 95/53 09/05/17 12:12 Pulse Ox 100 09/05/17 12:12 Intake & Output 09/04/17 09/05/17 09/05/17 18:59 06:59 18:59 Intake Total 100 50 Balance 100 50 Weight (lbs) 91.172 kg Intake: Intake, IV Amount 100 50 Piperacillin Sodium/ 100 50 Tazobact 3.375 gm In Sodium Chloride 0.9% 50 ml @ 100 mls/hr IV Q8H [facility] Rx#:[id number] Active Medications: Current Medications Guaifenesin (Robitussin) 200 mg PO Q4HR PRN PRN Reason: Cough or Congestion Stop: 11/01/17 12:55 Last Admin: 09/03/17 19:22 Dose: 200 mg Dextrose/Sodium Chloride (D5-0.45ns) 1,000 mls @ 100 mls/hr IV .Q10H [facility] Stop: 10/30/17 23:58 Last Admin: 09/05/17 02:43 Dose: 100 mls/hr Piperacillin Sod/Tazobactam (Sod 3.375 gm/ Sodium Chloride) 50 mls @ 100 mls/ hr IV Q8H [facility] Stop: 10/31/17 09:59 Last Admin: 09/05/17 09:59 Dose: 100 mls/hr Morphine Sulfate (Morphine) 1 mg IVP Q4H PRN PRN Reason: Pain (Severe) Stop: 10/30/17 23:58 Last Admin: 09/04/17 15:52 Dose: 1 mg Morphine Sulfate (Morphine) 2 mg IVP Q3HR PRN PRN Reason: Pain (Severe) Stop: 11/03/17 16:26 Last Admin: 09/05/17 11:13 Dose: 2 mg Ondansetron HCl (Zofran) 4 mg IV Q6H PRN PRN Reason: Nausea / Vomiting Stop: 10/30/17 23:58 Last Admin: 09/02/17 19:00 Dose: 4 mg General: no acute distress, well developed, well nourished HEENT: atraumatic, normocephalic, PERRLA, EOMI Neck: supple, no thyromegaly Cardiovascular: S1S2, regular Lungs: clear to auscultation bilaterally, clear to percussion Abdomen: soft, no tender, no distended Extremities: no cyanosis, no clubbing, no edema Neurological: awake, alert, oriented - Procedures Procedures: Procedures Procedure Code Date ASPIRAT CURET-POST DELIV 69.52 08/23/11 MONITORING NOS 75.34 07/06/13 NON-STRESS TEST 09573 07/04/13 LAPAROSCOPIC CHOLECYSTECTOMY 53613 08/31/17 RESECTION OF GALLBLADDER, PERCUTANEOUS ENDOSCOPIC APPROACH [id number] 08/31/17 TREATMENT OF MISCARRIAGE 66510 08/23/11 Infectious Disease Assmt/Plan - Assessment Assessment: 1. Choledocholithiasis, cholecystitis. 2. Morbid obesity. - Plan Plan: Change zosyn to levaquin and flagyl po for 7 days.
--- NOTE | 2017-09-07 18:02 | Pathology Report ---
[id number] Collection date: 09/04/2017 Surgeon: Dr. Az Ibrahim Specimen Description: Gallbladder Gross Description: Received in formalin is a 9.0 x 3.2 x 2.2 cm oval gallbladder with a smooth glistening sargent-mchugh outer surface. Opening the gallbladder reveals multiple yellowish brown gallstones measuring up to 2.0 cm in greatest dimension. The gallbladder wall and mucosa is intact with a slightly eroded mucosal surface. Health Consultant sections are submitted in one cassette. Gross Pathologic Diagnosis: Cholelithiasis, gallbladder. Microscopic Description: The histologic sections show gallbladder wall and mucosa with chronic inflammation present consisting of lymphocytes and plasma cells. Diagnosis: Chronic cholecystitis, gallbladder. [facility]# [id number]
--- NOTE | 2017-09-08 08:59 | Discharge Summary ---
DATE OF DISCHARGE: 09/05/2017 This patient was admitted on 08/31/2017 in [facility], discharged on 09/05/2017. The patient came in with abdominal pain. The patient was diagnosed to have acute cholecystitis. The patient had HIDA scan and also had surgical consult. The patient had choledocholithiasis, and the patient had jaundice and urinary tract infection as well. The patient was given IV fluids, antibiotics, and the patient had a laparoscopic cholecystectomy. The patient improved. The patient was in stable condition. On 09/05/2017, the patient was discharged with final diagnosis of status post cholecystectomy ____. [facility]# [id number]
== END 2017-09-05 17:45 | disposition home or self-care (01) | DRG 263 ==
LOC: ER 19:25 → MSI 23:20
PROVIDERS: ADMIT Internal Medicine; ATTEND Internal Medicine
PROC: 3E0234Z Introduction of Serum, Toxoid and Vaccine into Muscle, Percutaneous Approach (ICD-10-PCS; 2017-09-01)
PROC: 0FT44ZZ Resection of Gallbladder, Percutaneous Endoscopic Approach (ICD-10-PCS; principal; 2017-09-04)
DX: K80.62 Calculus of gallbladder and bile duct with acute cholecystitis without obstruction (principal); E66.01 Morbid (severe) obesity due to excess calories; R79.89 Other specified abnormal findings of blood chemistry; N39.0 Urinary tract infection, site not specified; E86.0 Dehydration; Z79.899 Other long term (current) drug therapy; Z83.3 Family history of diabetes mellitus; Z68.39 Body mass index [BMI] 39.0-39.9, adult; Z23 Encounter for immunization
CPT/HCPCS: 36415-UA; 76700-TC; 80048-TC; 80053-TC; 80061-TC; 80076-TC; 81001-TC; 81025-TC; 82150-TC; 82948-90; 83690-TC; 84443-TC; 84703-TC; 85025-TC; 85610-TC; 88304-TC; 90732; 90799; 96372; 96374; C9113; J0696; J1200; J2001; J2405; J2543; J2704; J2710; J3010; J7030; J7040; X6024; X6258; Z7610; Z7610-TC